=== PATIENT | male | born 1970 | race Caucasian/White ===

== ENCOUNTER 2022-07-26 10:38 | Day surgery (SDC) | payer OTHER, SELFPAY ==
[2022-07-23 12:07] VITALS: BMI 23.8
--- NOTE | 2022-07-25 12:58 | P.CONAN_ITS ---
Documented by User: Silvia Lagos NP 07/25/22 12:58 HPI - Anesthesia Eval Consult details Narrative: 52yo M for Colonoscopy PMFSH Active Problems Active Problems: All Active Problems (Updated 07/23/22 @ 11:55 by Alisha Harrison RN) Constipation (Acute) Encounter to establish care (Acute) Screening for diabetes mellitus (Acute) Screening for hyperlipidemia (Acute) Screening for hypothyroidism (Acute) Screening for prostate cancer (Acute) Neuropathy (Acute) COVID-19 (Acute) GERD (gastroesophageal reflux disease) (Acute) Upper back pain (Acute) Wart (Acute) Past Medical History Medical History History of COVID-19 Neuropathy Family History Family History Mother Dementia Father Cancer Other Mental health disorder Substance use disorder Surgical History Surgical History History of endoscopy History of root canal procedure Social History Social History Housing: Apartment Are you a primary child care coordinator to a significant other at home: No Do you presently have visiting nurse or other home services: No Alcohol intake: current Alcohol intake frequency: holidays/special occasions only Alcohol type: beer Patient Tobacco Use Status: Never used Tobacco e-Cigarette/Vaping Use: Never Used Second Hand Smoke Exposure: No Use of substances other than those prescribed or required for medical reasons: No Have you been hit, kicked, punched, or otherwise hurt by someone within the past year? 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 Cognitive needs: No Hearing needs: No Vision needs: Yes (glasses) Meds Allergies Allergy/AdvReac Type Severity Reaction Status Date / Time No Known Allergies Allergy Verified 05/31/22 11:54 Exam Exam Date and Time: July 25, 2022 1258 Height,Weight and Vital Signs: Height 5 ft 6 in Weight 67.132 kg Assessment and Plan Assessment Anesthesia Assessment: Chart Reviewed Documented by User: Sandi Zuniga MD 07/26/22 11:30 [facility] Active Problems Active Problems: All Active Problems (Updated 07/26/22 @ 11:22 by Sandi Zuniga MD) Constipation (Acute) Neuropathy (Acute) COVID-19 (Acute) GERD (gastroesophageal reflux disease) (Acute) Upper back pain (Acute) Wart (Acute) Past Medical History Medical History History of COVID-19 Neuropathy Family History Family History Mother Dementia Father Cancer Other Mental health disorder Substance use disorder Family history of problems with anesthesia: No Surgical History Surgical History History of endoscopy History of root canal procedure History of Problems with Anesthesia: No Social History Social History Housing: Apartment Are you a primary child care coordinator to a significant other at home: No Do you presently have visiting nurse or other home services: No Alcohol intake: current Alcohol intake frequency: holidays/special occasions only Alcohol type: beer Patient Tobacco Use Status: Never used Tobacco e-Cigarette/Vaping Use: Never Used Second Hand Smoke Exposure: No Use of substances other than those prescribed or required for medical reasons: No Have you been hit, kicked, punched, or otherwise hurt by someone within the past year? 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 Denies broken, loose, missing teeth) Heart: RRR Lungs: CTAB Assessment and Plan Assessment Anesthesia Assessment: Anesthesia Plan Discussed Final Anesthetic Review Family History of Problems with Anesthesia: No History of Problems with Anesthesia: No NPO: Yes ASA Class: II Final Preanesthetic Review: No Changes in Pt Med Stat, Meds/Allgs Chart Reviewed, Consent Obtained/Reviewed and Anes Risks/Benef Reviewed Patient Risk: Low Procedure Risk: Low Assessment/Block/Sedation in SS: Assess/Block/Sedation-SS Anesthetic Plan Anesthetic Plan: MAC: Disposition: Standard PACU
[2022-07-26] MEDS: Lactated Ringers 1,000 ML 100 ML IVCONT (10:56)
[2022-07-26 11:19] VITALS: BP 147/97; PULSE 103; RESP 18; TEMP 36.6; O2SAT 97
--- NOTE | 2022-07-26 11:41 | MHC.SHP ---
Pre-Procedural Eval Section A Date of Service: 07/26/22 The patient is an INPATIENT: No The History & Physical has been completed within 30 days and I have reviewed it.: No Section B Chief Complaint: screening Relevant Social History: None Present Medications: see Short Stay Collaborative assessment Medical History: Significant History (GERD, constipation, neuropathy) History of Previous Operations: Relevant previous surgery/procedure and date(s) (History of endoscopy History of root canal procedure) Allergies: Allergies Allergy/AdvReac Type Severity Reaction Status Date / Time No Known Allergies Allergy Verified 05/31/22 11:54 Review of Systems Sugical H&P ROS: Negative: Constitution, Cardiovascular and Respiratory and Yes, Specify: Gastrointestinal (constipation and diarrhea) Exam Surgical H&P Exam: Normal: Heart, Normal: Lungs and Normal: Extremities Plan I have reviewed the history and physical and performed a pertinent physical examination on my patient. No changes have occurred unless specified. Time Spent With Patient Time: Total time managing care of this patient today ____ minutes.
--- NOTE | 2022-07-26 11:44 | PC.NURSE ---
report given to wu luz rn at this time.
--- NOTE | 2022-07-26 12:35 | PM.OP ---
Brief Operative Note Date of Service: 07/26/22 Pre-op diagnosis: Colon cancer screening (open access colonoscopy), intermittent constipation and diarrhea Post-op diagnosis: other (COLON POLYPS, DIVERTICULOSIS, HEMORRHOIDS) Procedure: COLONOSCOPY TO CECUM WITH BIOPSIES AND SNARE POLYPECTOMY Surgeon: Gwendolyn Arambula MD Anesthesia: MAC Was an Parts Counter Sales Person used for this Procedure?: Yes Parts Counter Sales Person: Elmer Valadez Estimated blood loss (mL): 0 Pathology: other (A- ASCENDING COLON POLYP B- RIGHT COLON BXS R/O MICROSCOPIC COLITIS C- LEFT COLO BXS R/O MICROSCOPIC COLITIS D- SIGMOID POLYP) Condition: stable Disposition: PACU
--- NOTE | 2022-07-26 12:36 | W.PM.OPN ---
Operative Note Operative Note Date of Service: 07/26/22 Narrative: Pre-op diagnosis: Colon cancer screening (open access colonoscopy), intermittent constipation and diarrhea alternating with normal stools Post-op diagnosis:?other (COLON POLYPS, DIVERTICULOSIS, HEMORRHOIDS) Surgeon: Gwendolyn Arambula MD Anesthesia:?MAC COLONOSCOPY TILL CECUM WITH BIOPSIES AND SNARE POLYPECTOMY Consent: Indications for the procedure and potential complications of bleeding, perforation, reaction to medications and missed diagnosis were discussed with the patient and informed consent was obtained. Instrument: Olympus PCF H 190 L variable stiffness pediatric colonoscope Monitoring: Vital signs and clinical assessment, intermittent blood pressure monitoring, continuous EKG monitoring, Pulse oximetry and Carbon Dioxide monitoring were done throughout the procedure. Colon withdrawl time was 21 minutes. Procedure: The patient was placed in the left lateral decubitis position and pre-procedure medications were administered. After a digital rectal examination of the ano-rectum, the video colonoscope was inserted into the rectum and advanced through the colon to the cecum. The colonoscope was slowly withdrawn in a retrograde panoramic fashion and the colon mucosa was carefully examined including a retroflexed view of the rectum. Findings and interventions are described below. Procedure Difficulty: Without difficulty Findings: Terminal Ileum: Distal 5 cm was examined and appeared normal Cecum: Normal Ascending Colon: A 7-8 mm sessile polyp in mid AC removed with a cold snare Transverse Colon: Normal Descending Colon: Moderate diverticulosis Sigmoid Colon: A 10 mm sessile polyp removed with a cold snare. Moderate diverticulosis Rectum: Normal Ano-rectum: Moderate internal hemorrhoids Colon preparation: Good after some irrigation Impression and Post Procedure Diagnosis: Colonoscopy Findings: Two small to medium sized polyps removed Random biopsies were obtained from right and left colon to check for microscopic colitis. Moderate diverticulosis seen in the left colon Moderate hemorrhoids on retroflexed exam. Plan: A letter will be sent with pathology results Repeat Colonoscopy interval based on path results - in 3-5 years if polyps are adenomatous and 10 years if polyps are hyperplastic. Above findings were reviewed with the patient and colon polyps and diverticulosis handouts were given in the discharge area Pt was advised to start taking a fibre supplement to help regulate his BMs. And to schedule an appt in the GI clinic if his symptoms persist.
[2022-07-26 13:16] VITALS: BP 109/70; PULSE 80; RESP 16; TEMP 36.1; O2SAT 97
[2022-07-26 13:30] VITALS: BP 108/70; PULSE 72; RESP 16; O2SAT 98
[2022-07-26 13:45] VITALS: BP 122/85; PULSE 66; RESP 16; TEMP 36.2; O2SAT 100
== END 2022-07-26 14:25 | disposition home or self-care (01) ==
PROVIDERS: Visit Provider Internal Medicine Gastroenterology
PROC: 0DJD8ZZ Inspection of Lower Intestinal Tract, Via Natural or Artificial Opening Endoscopic (ICD-10-PCS; CPT 45378; principal; 2022-07-26 11:50)
DX: Z12.11 Encounter for screening for malignant neoplasm of colon (principal); D12.2 Benign neoplasm of ascending colon; D12.5 Benign neoplasm of sigmoid colon; K57.30 Diverticulosis of large intestine without perforation or abscess without bleeding; K64.8 Other hemorrhoids; K59.09 Other constipation; R19.7 Diarrhea, unspecified; K21.9 Gastro-esophageal reflux disease without esophagitis; G62.9 Polyneuropathy, unspecified; Z79.899 Other long term (current) drug therapy; Z86.16 Personal history of COVID-19
CPT/HCPCS: 45385; 45380; 88305

== ENCOUNTER 2023-04-14 11:04 | Outpatient (AMB) | payer BC, SELFPAY ==
--- NOTE | 2023-04-14 11:23 | AM.OFFWIN_ITS ---
Intake Vital Signs 04/14/23 11:24 Height 5 ft 6 in Weight 68.039 kg BMI 24.2 BP 122/80 Blood Pressure Location Lt brachial Position Sitting Pulse 76 Pulse Source Pulse Oximeter Temp 97.8 F Temp Source Temporal Artery Scan Pulse Oximetry (%) 97 Intake Visit Reasons: EP LT toe injury from November/ Intake Note: pt is here for c.o left left injury from november and Patient Tobacco Use Status: Never used Tobacco Allergies No Known Allergies Allergy (Verified 04/14/23 11:24) Do you need a note to return to daycare/school/sports/work: Yes HPI HPI Comments History of Present Illness Details 1141 This is a 53-year-old male presenting to the clinic for evaluation of atraumatic left 2nd toe pain since November, patient states he remembers this pain started while at work however no associated trauma. Intermittent in nature, severe from time to time. Minimal pain at this time. Patient tells me he knows it is fractured and or broken. No numbness, tingling, fevers, chills. No history of gout. Physical examination benign. Normal appearing finger. 2+ dorsalis pedis, anterior tibialis and posterior tibialis pulses equal bilateral. Normal sensation distally. Capillary refill less than 2nd to bilateral lower extremity toes. Full painless range of motion to all toes. No deformities. This is likely inflammatory arthritis versus gout. Unlikely fracture, dislocation no signs of neurovascular compromise or threat to limb Will send a short course of prednisone and naproxen. Advised him to follow-up with the orthopedic team at this continues. I did offer him an x-ray however he states he his pain out of pocket so he would prefer to not have 1 if he does not need it. Low suspicion for fracture explain. As this is atraumatic. Educated patient on diagnosis and treatment plan, answered all question, patient verbalizes understanding. At this time patient will be discharged home, advised to return with new or worsening symptoms. Educated on worrisome signs and symptoms and when to return. At this time I feel comfortable discharge home. [facility] Medical History Neuropathy History of COVID-19 Surgical History History of endoscopy History of root canal procedure Family History Mother Dementia Father Cancer Other Mental health disorder Substance use disorder Social History Housing: Apartment Are you a primary personal care service provider to a significant other at home: No Do you presently have visiting nurse or other home services: No Alcohol intake: current Alcohol intake frequency: holidays/special occasions only Alcohol type: beer Patient Tobacco Use Status: Never used Tobacco e-Cigarette/Vaping Use: Never Used Second Hand Smoke Exposure: No service: No 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 occupational 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: employed 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 Cognitive needs: No Hearing needs: No Vision needs: Yes (glasses) Review of Systems Const Details: Constitutional : No Weight loss, No Fever, No Chills, No Fatigue, No Malaise ENT/Mouth : No sore throat, No Rhinorrhea Eyes: No Eye Pain, No Swelling, No Redness Cardiovascular : No Chest Pain, No SOB, No Dyspnea on Exertion, No Orthopnea, No Edema, No Palpitations Respiratory : No Cough, No Sputum, No Wheezing Gastrointestinal : No Nausea, No Vomiting, No Diarrhea, No Constipation, No abdominal Pain, No Hematochezia, No Melena Genitourinary : No Dysuria, No Urinary Frequency, No Hematuria, Musculoskeletal : + joint pain, No Myalgias, No Joint Swelling Skin : No Skin Lesions, No rash Neuro : No Weakness, No Numbness, No Dizziness, No Headache Psych : No Anxiety/Panic, No Depression All other systems reviewed and are negative All systems reviewed & are unremarkable except as noted in HPI and below Physical Exam Vital Signs: Last Vital Signs Temp 97.8 F 04/14/23 11:24 Pulse 76 04/14/23 11:24 BP 122/80 04/14/23 11:24 Pulse Ox 97 04/14/23 11:24 BMI result Body Mass Index 24.2 vss Appearance: Alert.? Oriented X3.? No acute distress.? Head: Normocephalic, atraumatic, no step-offs or deformities Eyes: Pupils equal, round and reactive to light.? ENT: Pharynx normal.? Neck: Normal inspection.? Neck supple.? CVS: Normal heart rate and rhythm.? Pulses normal.? Respiratory: No respiratory distress.? Breath sounds normal.? Abdomen: Soft and nontender.? Skin: Skin warm and dry.? Normal skin color.? Normal skin turgor.? Extremities: No lower extremity edema.? No calf ttp. 5/5 strength to bilateral upper and lower extremities +Normal appearing finger. 2+ dorsalis pedis, anterior tibialis and posterior tibialis pulses equal bilateral. Normal sensation distally. Capillary refill less than 2nd to bilateral lower extremity toes. Full painless range of motion to all toes. No deformities Neuro: Oriented X 3.? No motor deficit.? No sensory deficit. CN 2-12 intact Assessment & Plan Assessment & Plan (1) Toe pain, left: Code(s): M79.675 - Pain in left toe(s) Plan Take your medications as prescribed. If you were prescribed antibiotics today, it is important that you take your medication to their entirety, do not skip any doses, do not finish them early. Follow-up with your primary care provider this week. Return to the emergency department with new or worsening symptoms. Such as fevers, chills, chest pain, shortness of breath, nausea, vomiting, dizziness, headache, vision changes, lethargy In case of emergency call 911 Orders: Orders XR toe LT min 2V Today M79.675 - Pain in left toe(s) Medications: New naproxen 500 mg PO BID PRN 14 tabs 0RF pain prednisone 40 mg (2 x 20 mg) PO DAILY 5 days 10 tabs 0RF Coding Level of Care Code Est Pt Level 3 (88773) Diagnoses Toe pain, left M79.675
[2023-04-14 11:24] VITALS: BP 122/80; PULSE 76; TEMP 36.6; O2SAT 97; BMI 24.2
== END 2023-04-14 12:11 | disposition home or self-care (01) ==
PROVIDERS: Visit Provider Physician Assistant
DX: M79.675 Pain in left toe(s) (principal)
CPT/HCPCS: 99213

== ENCOUNTER 2023-06-19 13:51 | Outpatient (AMB) | payer BC, SELFPAY ==
--- NOTE | 2023-06-19 13:55 | A.OFFPC_ITS ---
Vital Signs 06/19/23 13:56 Height 5 ft 6 in Weight 155 lb 2 oz BMI 25.0 BP 136/70 Blood Pressure Location Lt brachial Position Sitting Pulse 77 Pulse Source Pulse Oximeter Pulse Oximetry (%) 98 Oxygen Delivery Method Room Air Intake Visit Reasons: Prostate issues, rescheduled from 05/15 Steamship Agent Required: No Accompanied by: Self / Same As Patient Allergies No Known Allergies Allergy (Verified 06/19/23 13:56) Tobacco use date assessed: 06/19/23 Dental Screening Dental Screen Date: 06/19/23 Did you have a dental visit in the last 12 months?: Yes Was dental information given to patient?: Patient has dentist HPI HPI Comments History of Present Illness Details 53-year-old male past medical history si gnificant for constipation, neuropathy, GERD. Patient of Brigette Coronado, patient presents today for prostate issues. Patient reports 2 years ago noted a slower urinary stream, as 6 weeks ago he noted that when he was urinating felt like he was not emptying his bladder completely and states that he would have to wait 30-40 seconds and would urinate a little bit more. Patient denies any pain at this time however reports he did have of pelvic discomfort a few weeks ago which has completely resolved. Patient denies urinary frequency, fever, chills and flank pain. Reports occasional dysuria however this is infrequent. Patient reports this week noted left elbow pain that extends up into his bicep area and extends down his arm and he has mild numbness in left ring and pinky finger. Patient denies any acute injury. States he is taking [id number] Tylenol with some relief of pain. Denies any upper extremity weakness or dropping things [facility] Medical History Neuropathy History of COVID-19 Surgical History History of endoscopy History of root canal procedure Family History Mother Dementia Father Cancer Other Mental health disorder Substance use disorder Social History Housing: Apartment Are you a primary clinical care coordinator to a significant other at home: No Do you presently have visiting nurse or other home services: No Alcohol intake: current Alcohol intake frequency: holidays/special occasions only Alcohol type: beer Patient Tobacco Use Status: Never used Tobacco e-Cigarette/Vaping Use: Never Used Second Hand Smoke Exposure: No service: No Current occupational status: employed 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 1. Little interest or pleasure in doing things: not at all 2. Feeling down, depressed, or hopeless: not at all 3. Trouble falling or staying asleep, or sleeping too much: not at all 4. Feeling tired or having little energy: not at all 5. Poor appetite or overeating: not at all 6. Feeling bad about yourself - or that you are a failure or have let yourself or your family down: not at all 7. Trouble concentrating on things, such as reading the newspaper or watching television: not at all 8. Moving or speaking so slowly that other people could have noticed. Or the opposite - being so fidgety or restless that you have been moving around a lot more than usual: not at all 9. Thoughts that you would be better off or of hurting yourself in some way: not at all Total score: 0 80363 - PHQ-9 Billing: Yes Source: Developed by Drs. Luis M Balderrama, No Thao, Mynor Ortiz and colleagues, with an educational jeremy from [employer]. Thrive Questionnaire Date Thrive assessed: 06/19/23 I am a: Patient What is your living situation today?: I have a steady place to live Within the past 12 months, did the food you bought not last and you didn't have the money to get more?: Never true Within the past 12 months, did you worry whether your food would run out before you got money to buy more?: Never true Do you have trouble paying for medicines?: No Do you have trouble getting transportation to medical appointments?: No Do you have trouble paying your heating and electricity bill?: No Do you have trouble taking care of your child, family member or friend?: No Do you have trouble with day-to-day activities such as bathing, preparing meals, shopping, managing finances, etc.?: No Are you currently unemployed and looking for a job?: No Are you interested in more education?: No Please select the resources that you would like help with: None Currently or been in a relationship where the following occur: no concerns reported AUDIT C Alcohol Use Questionnaire (AUDIT-C) 1. How often do you have a drink containing alcohol?: 2-3 times a week 2. How many drinks containing alcohol do you have on a typical day when you are drinking?: 1 or 2 3. How often do you have six or more drinks on one occasion?: Never Total Score: 3 PERRY-7 AMB Questionnaire PERRY-7 Date PERRY - 7 assessed: 06/19/23 Feeling nervous, anxious, or on edge: 0 = Not at all Not being able to stop or control worryin = Not at all Worrying too much about different things: 0 = Not at all Trouble relaxin = Not at all Being so restless that it is hard to sit still: 0 = Not at all Becoming easily annoyed or irritable: 0 = Not at all Feeling afraid as if something awful might happen: 0 = Not at all Total PERRY-7 score (0-4 normal; 5-9 mild; 10-14 moderate; 15-21 severe): 0 Source: Developed by Drs. Luis M Balderrama, No Thao, Mynor Ortiz and colleagues, with an educational jeremy from [employer]. PERRY-7 Assessment Billing PERRY-7 Assessment Tool: PERRY-7 Assessment 97078 Review of Systems Const Denies chills, Denies fatigue, Denies fever(s) and Denies poor appetite Eyes Denies no additional complaints ENT Reports Normal hearing present Card Denies chest pain, Denies syncope, Denies rapid heart rate and Denies dyspnea Resp Denies cough and Denies dyspnea GI Denies change in stool character, Denies constipation, Denies diarrhea, Denies nausea and Denies vomiting Details: slow urinary stream Denies dysuria, Denies urinary frequency and Denies urinary urgency Musc Reports arthralgias (left elbow pain ) Neuro Reports Normal hearing present, Denies confusion and Denies syncope Psych Denies confusion Endo Denies fatigue Physical exam (Primary Care) Vital Signs: Last Vital Signs Pulse 77 06/19/23 13:56 BP 136/70 06/19/23 13:56 Pulse Ox 98 06/19/23 13:56 Oxygen Delivery Method Room Air 06/19/23 13:56 BMI result Body Mass Index 25.0 Tobacco/Smoking Status: Tobacco use Status Tobacco use date assessed 06/19/23 06/19/23 14:02 Patient Tobacco Use Status Never used Tobacco 06/19/23 14:02 e-Cigarette/Vaping Use Never Used 06/19/23 14:02 PHQ-9: PHQ-9 Score PHQ-9: Total score 0 06/19/23 14:02 Thrive Assessment: Date of Thrive Assessment Date Thrive assessed 06/19/23 06/19/23 14:02 Currently or been in a relationship where the following occur: no concerns reported Const General: No confusion Orientation/consciousness: No confusion HENMT Head: Yes normocephalic and Yes atraumatic Eyes Conjunctivae: conjunctivae normal Chest Chest palpation & inspection: normal inspection of the chest Resp Effort & Inspection: normal respiratory effort Auscultation: clear to auscultation bilaterally, no crackles, no rhonchi and no wheezes Cardio Rate: regular rate Rhythm: regular rhythm Heart sounds: S1 normal heart sound present and S2 normal heart sound present GI Inspection: Yes normal to inspection General: Yes no CVA tenderness Back/Spine/Pelvis Back: no CVA tenderness Neuro General: No confusion Cranial nerves: Yes Normal hearing present Extrem General: No edema Right upper extremity: normal to inspection and full ROM Left upper extremity: normal to inspection, full ROM, normal capillary refill and elbow/forearm Details: abnormal ROM Details: pain with active ROM; no tenderness and no swelling Assessment and Plan Assessment & Plan (1) Dysuria: Code(s): R30.0 - Dysuria Plan: Urinalysis with reflex culture ordered to further evaluate. Given patient reports slower urinary stream is concerned about prostate problems will order PSA to further evaluate. (2) Epicondylitis, lateral, left: Code(s): M77.12 - Lateral epicondylitis, left elbow Plan: Naproxen 500 b.i.d. as needed sent for likely epicondylitis did discuss with patient referral to physical therapy for left elbow pain and likely nerve compression. Patient declines at this time would like to proceed with anti- inflammatory medication 1st to see if this resolves his left elbow pain. If no improvement patient advised to follow-up for further evaluation and treatment with physical therapy and possible EMG and nerve conduction studies if numbness persists. Patient agreeable to plan of care. Plan Patient declined scheduling follow-up patient states he will call if needed Orders: Orders Comprehensive [place]. Panel Fast 06/19/23 R30.0 - Dysuria Prostate Specific Antigen Scr 06/19/23 Z12.5 - Encounter for screening for malignant neoplasm of prostate UA CC w/rflx Micro + Cult 06/19/23 R30.0 - Dysuria Medications: New naproxen 500 mg PO BID PRN 30 tabs 3RF pain M77.12 - Lateral epicondylitis, left elbow Coding Level of Care Code Est Pt Level 3 (55024) Diagnoses Dysuria R30.0 Epicondylitis, lateral, left M77.12 Additional Codes PERRY-7 Assessment Billing - PERRY-7 Assessment Tool: PERRY-7 Assessment 27483 ([id number])
[2023-06-19 13:56] VITALS: BP 136/70; PULSE 77; O2SAT 98; BMI 25.0
== END 2023-06-19 14:24 | disposition home or self-care (01) ==
PROVIDERS: PCP Nurse Practitioner Family; Visit Provider Nurse Practitioner Family
DX: R30.0 Dysuria (principal); M77.12 Lateral epicondylitis, left elbow
CPT/HCPCS: 99213

== ENCOUNTER 2023-06-19 14:29 | Outpatient (REF) | payer BC, SELFPAY ==
[2023-06-19 15:06] LABS: Appearance Urine Clear; Color Urine Yellow; Glucose Urine UA Negative (Negative); Leukocyte Esterase Urine Negative (Negative); Nitrite Urine Negative (Negative); PH 6.5 (5.0-9.0); Specific Gravity - Urine 1.015 (1.005-1.025); Urine Blood Negative (Negative); Urine Ketones Negative (Negative); Urine Protein Negative (Neg-Trace)
[2023-06-19 15:57] LABS: Prostate Specific Antigen Scr 0.23 ng/mL (<0.05-4.0)
== END 2023-06-19 14:30 | disposition home or self-care (01) ==
LOC: HO.LAB 14:29
PROVIDERS: Visit Provider Nurse Practitioner Family
DX: Z12.5 Encounter for screening for malignant neoplasm of prostate (principal); R30.0 Dysuria
CPT/HCPCS: 36415; 81003; 84153

== ENCOUNTER 2023-06-24 08:03 | Outpatient (REF) | payer BC, SELFPAY ==
[2023-06-24 09:26] LABS: Alanine Aminotransferase 50 U/L (0-40); Alkaline Phosphatase 49 U/L (39-117); Anion Gap 10 (12-20); Aspartate Amino Transferase 33 U/L (5-37); Bilirubin Total 0.5 mg/dL (0.0-1.0); Blood Urea Nitrogen 20 mg/dL (9-16); Calcium 9.1 mg/dL (8.4-10.2); Carbon Dioxide 27 mmol/L (22-29); Chloride 109 mmol/L (96-108); Estimated Glomerular Filt Rate > 60; Glucose Fasting 95 mg/dL (60-99); Potassium 4.4 mmol/L (3.3-5.1); Sodium 142 mmol/L (135-145); Total Protein 6.6 g/dL (6.5-8.0)
== END 2023-06-24 08:04 | disposition home or self-care (01) ==
LOC: HO.LAB 08:03
PROVIDERS: PCP Nurse Practitioner Family; Visit Provider Nurse Practitioner Family
DX: R30.0 Dysuria (principal)
CPT/HCPCS: 36415; 80053

== ENCOUNTER 2024-02-17 11:26 | Outpatient (AMB) | payer BC, SELFPAY ==
--- NOTE | 2024-02-17 11:59 | MHC.OFFWIV ---
Intake Vital Signs 02/17/24 12:00 Height 5 ft 6 in Weight 156 lb BMI 25.2 BP 134/86 Blood Pressure Location Lt brachial Position Sitting Pulse 81 Pulse Source Pulse Oximeter Temp 97.9 F Temp Source Temporal Artery Scan Pulse Oximetry (%) 98 Oxygen Delivery Method Room Air Intake Visit Reasons: EP Persistent cough Intake Note: pt c/o persistent cough. Started beginning of January. Patient Tobacco Use Status: Never used Tobacco Allergies No Known Allergies Allergy (Verified 02/17/24 11:59) Do you need a note to return to daycare/school/sports/work: No HPI HPI Comments History of Present Illness Details 53 y/o male patient who presents to the walk in clinic with c/o persitent dry cough for 4 weeks now. Denies fevers, chills, nausea or vomiting. [facility] Medical History Neuropathy History of COVID-19 Surgical History History of endoscopy History of root canal procedure Family History Mother Dementia Father Cancer Other Mental health disorder Substance use disorder Social History Housing: Apartment Are you a primary critical care nurse practitioner to a significant other at home: No Do you presently have visiting nurse or other home services: No Alcohol intake: current Alcohol intake frequency: holidays/special occasions only Alcohol type: beer Patient Tobacco Use Status: Never used Tobacco e-Cigarette/Vaping Use: Never Used Second Hand Smoke Exposure: No service: No Current occupational status: employed 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 Cognitive needs: No Hearing needs: No Vision needs: Yes (glasses) Review of Systems Const All systems reviewed & are unremarkable except as noted in HPI and below Physical Exam Vital Signs: Last Vital Signs Temp 97.9 F 02/17/24 12:00 Pulse 81 02/17/24 12:00 BP 134/86 02/17/24 12:00 Pulse Ox 98 02/17/24 12:00 Oxygen Delivery Method Room Air 02/17/24 12:00 BMI result Body Mass Index 25.2 Const General: comfortable and no acute distress Nutritional Appearance: well nourished Orientation/consciousness: patient oriented x3 HEENT Head: Yes normocephalic Ears: external ears normal and TM's normal bilaterally General nose exam: Normal nasal mucous membranes and turbinates present Face and sinus: Yes sinuses nontender Mouth: moist mucous membranes Throat: Yes posterior oropharynx normal Resp Effort & Inspection: normal respiratory effort, able to speak in complete sentences and Actively coughing Auscultation: clear to auscultation bilaterally, no crackles, no rales, no rhonchi and no wheezes Cardio Heart sounds: S1 normal heart sound present and S2 normal heart sound present Neuro General: patient oriented x3 Assessment & Plan Assessment & Plan (1) Cough in adult: Code(s): R05.9 - Cough, unspecified Plan: Take Claritin BID Ordered Doxy OTC cough remedies. Medications: New doxycycline hyclate 100 mg PO BID 7 days 14 caps 0RF R05.9 - Cough, unspecified loratadine (Claritin) 10 mg PO DAILY 30 tabs 0RF R05.9 - Cough, unspecified benzonatate 100 mg PO TID 30 caps 0RF R05.9 - Cough, unspecified Coding Level of Care Code Est Pt Level 3 (14168) Diagnoses Cough in adult R05.9 Time Spent (min) 15
[2024-02-17 12:00] VITALS: BP 134/86; PULSE 81; TEMP 36.6; O2SAT 98; BMI 25.2
== END 2024-02-17 13:23 | disposition home or self-care (01) ==
PROVIDERS: PCP Nurse Practitioner Family; Visit Provider Nurse Practitioner Family
DX: R05.9 Cough, unspecified (principal)
CPT/HCPCS: 99213

== ENCOUNTER 2024-04-16 15:53 | Outpatient (AMB) | payer BC, SELFPAY ==
--- NOTE | 2024-04-16 15:55 | AM.OFFWIN_ITS ---
Intake Vital Signs 04/16/24 15:56 Height 5 ft 6 in Weight 155 lb BMI 25.0 BP 120/82 Blood Pressure Location Rt brachial Position Sitting Pulse 86 Pulse Source Pulse Oximeter Pulse Oximetry (%) 97 Oxygen Delivery Method Room Air Intake Visit Reasons: EP Pain in lower left side Intake Note: Patient here for lower back pain for at least 1 week, last night the pain has enlarged Patient Tobacco Use Status: Never used Tobacco Allergies No Known Allergies Allergy (Verified 04/16/24 15:57) Do you need a note to return to daycare/school/sports/work: No HPI HPI Comments History of Present Illness Details 54 y/o male patient who presents to the walk in clinic with c/o left sided Flank/back pain for few days. Denies Frequency, urgency or dysuria, but reports weak urinary stream which has been going on for at-least 2 years. [facility] Medical History Neuropathy History of COVID-19 Surgical History History of endoscopy History of root canal procedure Family History Mother Dementia Father Cancer Other Mental health disorder Substance use disorder Social History Housing: Apartment Are you a primary floor care technician to a significant other at home: No Do you presently have visiting nurse or other home services: No Alcohol intake: current Alcohol intake frequency: holidays/special occasions only Alcohol type: beer Patient Tobacco Use Status: Never used Tobacco e-Cigarette/Vaping Use: Never Used Second Hand Smoke Exposure: No service: No 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 occupational 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: employed 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 Cognitive needs: No Hearing needs: No Vision needs: Yes (glasses) Review of Systems Const All systems reviewed & are unremarkable except as noted in HPI and below Physical Exam Vital Signs: Last Vital Signs Pulse 86 04/16/24 15:56 BP 120/82 04/16/24 15:56 Pulse Ox 97 04/16/24 15:56 Oxygen Delivery Method Room Air 04/16/24 15:56 BMI result Body Mass Index 25.0 Const General: cooperative and no acute distress Orientation/consciousness: patient oriented x3 General: Yes no CVA tenderness Back/Spine/Pelvis Back: no CVA tenderness and back tenderness Thoracic/Lumbar Spine: thoraco-lumbar ROM normal, paraspinal muscle tenderness and lumbar spinal tenderness (left sided flank tenderness L3-L5) Pelvis: no pain with anterior-posterior compression Neuro General: patient oriented x3, gait normal and moves all extremities Psych Speech and movement: Normal speech and movement present Assessment & Plan Assessment & Plan (1) Flank pain: Code(s): R10.9 - Unspecified abdominal pain Plan: Ordered Urinalysis to r/o Kidney/bladder infections, Pt unable to provide urine sample today. He will RTC tomorrow. (2) Lumbago without sciatica: Code(s): M54.50 - Low back pain, unspecified Qualifiers: Chronicity: acute Back pain laterality: left Qualified Code(s): M54.50 - Low back pain, unspecified Plan: Acetaminophen for pain relief. IceHot Ordered Flexeril and Lidocaine patches. Orders: Orders UA CC w/rflx Micro + Cult Today M54.50 - Low back pain, unspecified, R10.9 - Unspecified abdominal pain Medications: New cyclobenzaprine 5 mg PO BEDTIME 14 tabs 0RF M54.50 - Low back pain, unspecified lidocaine 5% leave on most painful area for up to 12 hrs 1 patch topical DAILY 30 ea 0RF M54.50 - Low back pain, unspecified Coding Level of Care Code Est Pt Level 3 (10107) Diagnoses Flank pain R10.9 Acute left-sided low back pain without sciatica M54.50 Chronicity: acute Back pain laterality: left Time Spent (min) 15
[2024-04-16 15:56] VITALS: BP 120/82; PULSE 86; O2SAT 97; BMI 25.0
== END 2024-04-16 16:21 | disposition home or self-care (01) ==
PROVIDERS: PCP Nurse Practitioner Family; Visit Provider Nurse Practitioner Family
DX: R10.9 Unspecified abdominal pain (principal); M54.50 Low back pain, unspecified

== ENCOUNTER → 2024-04-16 15:53 | Outpatient (BNVA) | payer BC, SELFPAY | PROVIDERS: PCP Nurse Practitioner Family ==

== ENCOUNTER 2024-06-23 14:24 | Outpatient (AMB) | payer BC, SELFPAY ==
--- NOTE | 2024-06-23 15:06 | AM.OFFWIN_ITS ---
Intake Vital Signs 06/23/24 15:08 Height 5 ft 6 in Weight 159 lb 8 oz BMI 25.7 BP 148/88 H Blood Pressure Location Rt brachial Position Sitting Pulse 92 Pulse Source Pulse Oximeter Temp 97.4 F Temp Source Temporal Artery Scan Pulse Oximetry (%) 100 Oxygen Delivery Method Room Air Intake Visit Reasons: EP ? stiches on LT ring finger Intake Note: Pt presents to the office today for c/o holding onto a metal shelf at work and as he was letting go his finger got caught on the shelf. Pt states this happened at about 12:45 this afternoon. Pt states he does not want this to be workmens comp. Pt states he is not up to date on his tetanus vaccine. Patient Tobacco Use Status: Never used Tobacco Allergies No Known Allergies Allergy (Verified 06/23/24 15:10) HPI HPI Comments History of Present Illness Details History of Present Illness The patient is a 54-year-old male presenting with a finger laceration. The injury occurred at work at approximately 12:30-12:45 PM when the patient accidentally cut his finger on a metal shelf. The patient attempted to wash the wound with hot water but did not have access to soap at the time. A colleague assisted the patient by applying an antiseptic and a Band-Aid to the wound. The patient reported difficulty stopping the bleeding initially, despite applying pressure for approximately 10 minutes, but it eventually ceased with the Band- Aid in place. The patient is not on any anticoagulant medications or aspirin. The last tetanus vaccination was likely between 1998 and 2002, and thus, a booster would be necessary. The patient's nail bed is intact, and there is no restriction in the range of motion of the finger. The appearance of the wound suggests it is superficial. Physical Exam General: Cooperative, healthy appearing, comfortable, no acute distress and well developed Orientation: Patient oriented x3 Limitations: No limitations Head: Normal to inspection Ears: Hearing grossly normal bilaterally Nose: Normal External nose present Face and sinus: normal facial exam Eyes: Appearance normal, both eyes and all related structures Neck: Normal visual inspection and Yes full ROM Respiratory: Normal respiratory effort and able to speak in complete sentences. Skin: No rashes or lesions noted Neuro: Patient oriented x3 Extremities: Normal to inspection, left 4th digit full ROM, NVI, 0.75cm linear superficial lac between DIP and PIP on palmar aspect, nail bed intact PFSH Medical History Neuropathy History of COVID-19 Surgical History History of endoscopy History of root canal procedure Family History Mother Dementia Father Cancer Other Mental health disorder Substance use disorder Social History Housing: Apartment Are you a primary home care companion to a significant other at home: No Do you presently have visiting nurse or other home services: No Alcohol intake: current Alcohol intake frequency: holidays/special occasions only Alcohol type: beer Patient Tobacco Use Status: Never used Tobacco e-Cigarette/Vaping Use: Never Used Second Hand Smoke Exposure: No service: No Current occupational status: employed Current occupation: [employer] Cognitive needs: No Hearing needs: No Vision needs: Yes (glasses) Review of Systems Const All systems reviewed & are unremarkable except as noted in HPI and below Physical Exam Vital Signs: Last Vital Signs Temp 97.4 F 06/23/24 15:08 Pulse 92 06/23/24 15:08 BP 148/88 H 06/23/24 15:08 Pulse Ox 100 06/23/24 15:08 Oxygen Delivery Method Room Air 06/23/24 15:08 BMI result Body Mass Index 25.7 Office Procedures Laceration Repair Procedure Location: left 4th digit Text: After discussion of risk and benefits, verbal informed consent was obtained. The area was cleaned, prepped, and draped using sterile technique. The wound was debrided and irrigated of any foreign material or devitalized tissue, soaked in Iodine. Steri-Strips if not stay in place because of the bleeding. Bleeding controlled using Surgicel, slight pressure bandage with a Band-Aid. Standard wound dressing was applied. Wound care instructions were given. The patient tolerated the procedure well. The patient was instructed to return for increased redness or red streaking, pain, swelling, pus, fevers, chills, or any other signs or symptoms of infection or worsening. DAC Immunizations Boostrix Tdap 2.5 Lf unit-8 mcg-5 Lf/0.5 mL intramuscular syringe Performing Provider: Silvana Kang PA-C Performing Location[place] [facility] Administered by: Lorelei Muñoz CMA on 06/23/24 15:40 Dose Route Admin Location Dispensed Lot Number Expiration Date [employer] Financial Legal Assistant 0.5 mL IM Left Tricep 0.5 mL [id number] 04/10/25 [id number] [employer] VIS Given Date VIS Provided VIS Publication Date 06/23/24 Single Vaccine 21 Eligibility Eligibility Date Funding Source Not [facility] Eligible 06/23/24 Private Assessment & Plan Assessment & Plan (1) Finger laceration: Code(s): S61.219A - Laceration without foreign body of unspecified finger without damage to nail, initial encounter Qualifiers: Damage to nail status: without damage Encounter type: initial encounter Finger: ring finger Foreign body presence: without foreign body Laterality: left Qualified Code(s): S61.215A - Laceration without foreign body of left ring finger without damage to nail, initial encounter Plan: Laceration of Finger: The wound was debrided and irrigated of any foreign material or devitalized tissue, soaked in Iodine. Steri-Strips would not stay in place because of the bleeding. Bleeding controlled using Surgicel, slight pressure bandage with a Band-Aid. Standard wound dressing was applied. Patient was instructed to not remove this dressing until tomorrow morning at which time the bleeding should have ceased. He was given extra materials to reapply if the bleeding continued. If he is unable to utilize them as directed, he should return to the clinic or go to the emergency department. Wound care instructions were given. The patient received a tetanus booster today due to the uncertain timing of the last vaccination. Care instructions include keeping the wound dry and monitoring for signs of infection, such as increased redness, swelling, or discharge. The patient should return if these symptoms occur or if there are any complications. Patient was informed and verbally consented to the use of an ambient scribe for clinic note documentation during this visit. Orders: Orders TDaP Immunization Today S61.219A - Laceration without foreign body of unspecified finger without damage to nail, initial encounter Coding Level of Care Code Est Pt Level 4 (77271) Diagnoses Laceration of left ring finger without foreign body without damage to nail, initial encounter S61.215A Damage to nail status: without damage Encounter type: initial encounter Finger: ring finger Foreign body presence: without foreign body Laterality: left
[2024-06-23 15:08] VITALS: BP 148/88; PULSE 92; TEMP 36.3; O2SAT 100; BMI 25.7
== END 2024-06-23 16:01 | disposition home or self-care (01) ==
PROVIDERS: PCP Nurse Practitioner Family; Visit Provider Physician Assistant
DX: S61.219A Laceration without foreign body of unspecified finger without damage to nail, initial encounter (principal); S61.215A Laceration without foreign body of left ring finger without damage to nail, initial encounter

== ENCOUNTER → 2024-06-23 14:24 | Outpatient (BNVA) | payer BC, SELFPAY | PROVIDERS: PCP Nurse Practitioner Family; Visit Provider Physician Assistant | DX: S61.215A Laceration without foreign body of left ring finger without damage to nail, initial encounter (principal); W26.8XXA Contact with other sharp object(s), not elsewhere classified, initial encounter; Y93.9 Activity, unspecified; Y92.9 Unspecified place or not applicable; Y99.9 Unspecified external cause status | CPT/HCPCS: 90471; 90715; 97597 ==

== ENCOUNTER 2024-06-24 11:39 | Outpatient (AMB) | payer BC, SELFPAY ==
[2024-06-24 12:43] VITALS: BP 124/80; PULSE 81; O2SAT 100
--- NOTE | 2024-06-24 12:43 | MHC.OFFWIV ---
Intake Vital Signs 06/24/24 12:43 Weight 159 lb BP 124/80 Blood Pressure Location Rt brachial Position Sitting Pulse 81 Pulse Source Pulse Oximeter Pulse Oximetry (%) 100 Oxygen Delivery Method Room Air Intake Visit Reasons: EP Re-wrap laceration on finger Intake Note: Patient here to have finger re-wrapped. Patient Tobacco Use Status: Never used Tobacco Allergies No Known Allergies Allergy (Verified 06/23/24 15:10) HPI HPI Comments History of Present Illness Details History of Present Illness The patient is a 54-year-old male presenting with concerns related to a digital injury sustained on the previous day. He experienced difficulty managing the wound himself, particularly due to concerns regarding potential bleeding from a possibly nicked artery, as discussed in prior consultations. The patient reported trouble sleeping due to discomfort and positioning difficulties, as he was cautious to avoid laying on the injured finger. Initial management involved the application of Surgicel to control bleeding, which formed a gelatinous matrix as anticipated. He refrained from self-removal of dressings due to concerns of exacerbating bleeding. The patient brought the initial dressing materials for possible reuse. Current symptoms include soreness at the site of injury with a history of periodic nocturnal awakenings due to discomfort. No systemic symptoms such as fever, streaking, or signs of infection were reported. The patient has no past medical interventions for this injury beyond wound care and application of antiseptic solutions provided from work. Physical Exam General: Cooperative, healthy appearing, comfortable, no acute distress and well developed Orientation: Patient oriented x3 Limitations: No limitations Head: Normal to inspection Ears: Hearing grossly normal bilaterally Nose: Normal external nose present Face and sinus: Normal facial exam Eyes: Appearance normal, both eyes and all related structures Neck: Normal visual inspection and Yes full ROM Respiratory: Normal respiratory effort and able to speak in complete sentences. Skin: No rashes or lesions noted Neuro: Patient oriented x3 Extremities: well healing, non bleeding 1cm superficial laceration on 4th left digit, no warmth, no edema, no erythema or streaking noted, full ROM, [facility] Medical History Neuropathy History of COVID-19 Surgical History History of endoscopy History of root canal procedure Family History Mother Dementia Father Cancer Other Mental health disorder Substance use disorder Social History Housing: Apartment Are you a primary child care director to a significant other at home: No Do you presently have visiting nurse or other home services: No Alcohol intake: current Alcohol intake frequency: holidays/special occasions only Alcohol type: beer Patient Tobacco Use Status: Never used Tobacco e-Cigarette/Vaping Use: Never Used Second Hand Smoke Exposure: No service: No Current occupational status: employed Current occupation: [employer] Cognitive needs: No Hearing needs: No Vision needs: Yes (glasses) Review of Systems Const All systems reviewed & are unremarkable except as noted in HPI and below Physical Exam Vital Signs: Last Vital Signs Pulse 81 06/24/24 12:43 BP 124/80 06/24/24 12:43 Pulse Ox 100 06/24/24 12:43 Oxygen Delivery Method Room Air 06/24/24 12:43 Assessment & Plan Assessment & Plan (1) Finger laceration: Code(s): S61.219A - Laceration without foreign body of unspecified finger without damage to nail, initial encounter Qualifiers: Encounter type: initial encounter Finger: ring finger Damage to nail status: without damage Foreign body presence: without foreign body Laterality: left Qualified Code(s): S61.215A - Laceration without foreign body of left ring finger without damage to nail, initial encounter Plan: Plan - Soaked the Surgicel in NS as an initial step for easy removal and to avoid reopening the wound. Removed with no issues, no further bleeding, applied Bacitracin and bandaid and gave wound care advice. - Advise wound care with emphasis on monitoring for signs of infection such as increased warmth, drainage, redness, or streaking. - Recommend the application of topical emollients such as Vaseline for ongoing wound management if necessary, eschewing specific antibacterial treatments unless infection signs appear. - Infuse patient education on the anatomical relevance and location of digital arteries to allay fears regarding arterial involvement. - Ensure the patient understands to seek further medical evaluation if symptoms suggestive of infection or worsening of the condition occur. Patient was informed and verbally consented to the use of an ambient scribe for clinic note documentation during this visit. Coding Level of Care Code New Pt Level 3 (46365) Diagnoses Laceration of left ring finger without foreign body without damage to nail, initial encounter S61.215A Encounter type: initial encounter Finger: ring finger Damage to nail status: without damage Foreign body presence: without foreign body Laterality: left
== END 2024-06-24 13:38 | disposition home or self-care (01) ==
PROVIDERS: PCP Nurse Practitioner Family; Visit Provider Physician Assistant
DX: S61.215A Laceration without foreign body of left ring finger without damage to nail, initial encounter (principal)

== ENCOUNTER → 2024-06-24 11:39 | Outpatient (BNVA) | payer BC, SELFPAY | PROVIDERS: PCP Nurse Practitioner Family; Visit Provider Physician Assistant ==

== ENCOUNTER 2024-10-06 10:34 | Outpatient (AMB) | payer BC, SELFPAY ==
--- NOTE | 2024-10-06 10:35 | AM.OFFWIN_ITS ---
Intake Vital Signs 10/06/24 10:37 Weight 146 lb BP 130/78 Blood Pressure Location Lt brachial Position Sitting Pulse 86 Pulse Source Pulse Oximeter Temp 98.7 F Temp Source Oral Pulse Oximetry (%) 98 Oxygen Delivery Method Room Air Intake Visit Reasons: EP-cough, acid reflux Intake Note: Patient here for persistent cough (3 weeks), fatigue and SOB that started the past couple of days. Patient Tobacco Use Status: Never used Tobacco Allergies No Known Allergies Allergy (Verified 10/06/24 10:38) Do you need a note to return to daycare/school/sports/work: Yes HPI HPI Comments History of Present Illness Details History - The patient is a 54-year-old male pres enting with a persistent cough of approximately three weeks, following flu-like symptoms. The patient initially experienced symptoms of a common cold or influenza but continues to encounter a persistent cough and fatigue. - Claritin was utilized to counteract as sumed seasonal allergy responses but provided limited efficacy in reducing the cough, although it relieved nasal congestion. Initial illness also involved low-grade fevers up to 99.7?F. - Symptoms included shortness of breath, particularly after work, and increased fatigue leading to extended sleeping periods. The patient attempted home management with NyQuil and Claritin but discontinued NyQuil after prolonged use. - Recent resurgence of acid reflux has b miroslava noted, correlated with increased episodes of coughing, with the patient reporting exacerbation by certain foods. As a result, the patient restarted Prilosec therapy but did not indicate previous antibiotics usage for symptoms. - denies sinus pain ear pain or head con gestion. - Residual symptoms include persistent c oughing accompanied by runny nose managed previously by allergenic pills. - tested negative for COVID at home. Physical Exam General: Cooperative, healthy appearing, comfortable and no acute distress Orientation/consciousness: Patient oriented x3 Limitations: No limitations Head: Normal to inspection Ears: Hearing grossly normal bilaterally, external ears normal and TM's normal bilaterally Nose: Normal external nose present, Normal nares present and No nasal discharge present Face and sinus: Normal facial exam and Yes sinuses nontender Mouth: Normal oral and palatal mucosa present and moist mucous membranes Throat: Yes tonsils normal, Yes uvula midline. Posterior oropharynx erythema with cobblestoning Eyes: Appearance normal, both eyes and all related structures Neck: Normal visual inspection Respiratory: Clear to auscultation bilaterally. Normal respiratory effort, able to speak in complete sentences, Actively coughing, no respiratory distress, not tachypneic, no tripod positioning and no use of accessory muscles Cardiovascular: Regular rate and rhythm. Normal S1 and S2 Skin: No rashes or lesions noted Neuro: Patient oriented x3 Extremities: Normal to inspection and Yes no clubbing, cyanosis or edema PFSH Medical History Neuropathy History of COVID-19 Surgical History History of endoscopy History of root canal procedure Family History Mother Dementia Father Cancer Other Mental health disorder Substance use disorder Social History Housing: Apartment Are you a primary insurance healthcare representative to a significant other at home: No Do you presently have visiting nurse or other home services: No Alcohol intake: current Alcohol intake frequency: holidays/special occasions only Alcohol type: beer Patient Tobacco Use Status: Never used Tobacco e-Cigarette/Vaping Use: Never Used Second Hand Smoke Exposure: No service: No Current occupational status: employed 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 Sent flu COVID and RSV testing, if this testing is negative I will send a Z-Júnior as it has been 3 weeks of a cough so it could certainly be bacterial if it is not viral. Recommended patient continue his daily allergy pill but add a decongestant, rest and hydrate. Wrote work note for today and tomorrow. If his symptoms should get worse, he should return to the clinic or go to the emergency department. Patient was informed and verbally consented to the use of an ambient scribe for clinic note documentation during this visit Orders: Orders SARS-CoV2/FLU/RSV Today R09.89 - Other specified symptoms and signs involving the circulatory and respiratory systems Coding Level of Care Code New Pt Level 3 (59460) Diagnoses Lower respiratory infection (e.g., bronchitis, pneumonia, pneumonitis, pulmonitis) J22
[2024-10-06 10:37] VITALS: BP 130/78; PULSE 86; TEMP 37.1; O2SAT 98
== END 2024-10-06 11:40 | disposition home or self-care (01) ==
PROVIDERS: PCP Nurse Practitioner Family; Visit Provider Physician Assistant
DX: J22 Unspecified acute lower respiratory infection (principal)

== ENCOUNTER 2024-10-06 10:34 | Outpatient (REF) | payer BC, SELFPAY ==
[2024-10-06 14:25] LABS: Influenza A PCR NEGATIVE (Negative); Influenza B PCR NEGATIVE (Negative); Resp Syncy Virus RNA Qual PCR NEGATIVE (Negative); SARS COV2 PCR INHOUSE NEGATIVE (Negative)
== END 2024-10-06 10:35 | disposition home or self-care (01) ==
LOC: HO.LAB 10:34
PROVIDERS: Physician Assistant; PCP Nurse Practitioner Family
DX: J22 Unspecified acute lower respiratory infection (principal); R09.89 Other specified symptoms and signs involving the circulatory and respiratory systems
CPT/HCPCS: 0241U

== ENCOUNTER 2024-10-18 10:25 | Outpatient (REF) | payer BC, SELFPAY ==
--- NOTE | ~2024-10-18 | XR_ITS ---
EXAMINATION: XR CHEST 2 VIEWS HISTORY: R05.2 - Subacute cough COMPARISON: There are no prior studies for comparison. FINDINGS: PA and lateral views of the chest are submitted. The lungs are expanded and clear. There is no pleural effusion, pneumothorax, or pulmonary vascular congestion. The heart is normal in size. The bones are intact. XR/XR chest 2V IMPRESSION: Clear lungs. Electronically signed by: Luis M Lozano MD 10/18/2024 11:52 AM EDT
== END 2024-10-18 10:26 | disposition home or self-care (01) ==
LOC: HO.HMGCX 10:25
PROVIDERS: PCP Nurse Practitioner Family; Visit Provider Nurse Practitioner Family
DX: R05.2 Subacute cough (principal)
CPT/HCPCS: 71046

== ENCOUNTER 2024-10-18 10:25 | Outpatient (AMB) | payer BC, SELFPAY ==
[2024-10-18 10:54] VITALS: BP 120/80; PULSE 93; TEMP 36.9; O2SAT 98
--- NOTE | 2024-10-18 10:54 | AM.OFFWIN_ITS ---
Intake Vital Signs 10/18/24 10:54 Weight 143 lb BP 120/80 Blood Pressure Location Rt brachial Position Sitting Pulse 93 Pulse Source Pulse Oximeter Temp 98.4 F Temp Source Oral Pulse Oximetry (%) 98 Oxygen Delivery Method Room Air Intake Visit Reasons: EP-cough Intake Note: Patient here for cough that has been present for over 4 weeks. Patient Tobacco Use Status: Never used Tobacco Allergies No Known Allergies Allergy (Verified 10/18/24 10:55) Do you need a note to return to daycare/school/sports/work: No HPI HPI Comments History of Present Illness Details 54 y/o Male patient who presents to the walk in clinic with c/o Dry Cough for 3 weeks now. Denies CP, Chest Tightness, congestion, or SOB. [facility] Medical History (Updated 10/18/24 @ 11:23 by Kathleen Cui NP) Cough Neuropathy History of COVID-19 Surgical History History of endoscopy History of root canal procedure Family History Mother Dementia Father Cancer Other Mental health disorder Substance use disorder Social History Housing: Apartment Are you a primary acute care occupational therapist to a significant other at home: No Do you presently have visiting nurse or other home services: No Alcohol intake: current Alcohol intake frequency: holidays/special occasions only Alcohol type: beer Patient Tobacco Use Status: Never used Tobacco e-Cigarette/Vaping Use: Never Used Second Hand Smoke Exposure: No service: No Current occupational status: employed 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 Cognitive needs: No Hearing needs: No Vision needs: Yes (glasses) Review of Systems Const All systems reviewed & are unremarkable except as noted in HPI and below Physical Exam Vital Signs: Last Vital Signs Temp 98.4 F 10/18/24 10:54 Pulse 93 10/18/24 10:54 BP 120/80 10/18/24 10:54 Pulse Ox 98 10/18/24 10:54 Oxygen Delivery Method Room Air 10/18/24 10:54 Const General: no acute distress Orientation/consciousness: patient oriented x3 Resp Effort & Inspection: normal respiratory effort and able to speak in complete sentences Auscultation: clear to auscultation bilaterally, no crackles, no rales, no rhonchi and no wheezes Cardio Rhythm: regular rhythm Heart sounds: S1 normal heart sound present and S2 normal heart sound present Neuro General: patient oriented x3, gait normal and moves all extremities Psych Speech and movement: Normal speech and movement present Assessment & Plan Assessment & Plan (1) Cough: Code(s): R05.9 - Cough, unspecified Qualifiers: Cough type: subacute Qualified Code(s): R05.2 - Subacute cough Plan: Ordered Chest Xray F/U with PCP. Orders: Orders XR chest 2V Today R05.2 - Subacute cough Coding Level of Care Code Est Pt Level 4 (17991) Diagnoses Subacute cough R05.2 Cough type: subacute Time Spent (min) 20
== END 2024-10-18 11:25 | disposition home or self-care (01) ==
PROVIDERS: PCP Nurse Practitioner Family; Visit Provider Nurse Practitioner Family
DX: R05.2 Subacute cough (principal)

== ENCOUNTER → 2024-10-18 11:27 | Outpatient (BNV) | payer BC, SELFPAY | PROVIDERS: PCP Nurse Practitioner Family; Visit Provider Radiology Diagnostic Radiology | DX: R05.2 Subacute cough (principal) | CPT/HCPCS: 71046 ==

== ENCOUNTER 2024-11-16 16:01 | Outpatient (AMB) | payer BC, SELFPAY ==
--- NOTE | 2024-11-16 16:10 | A.OFFPC_ITS ---
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 Accompanied by: Self / Same As Patient Allergies No Known Allergies Allergy (Verified 11/16/24 16:15) Medication List - Last Reconciled 11/16/24 by Smita Shea PA-C naproxen 500 mg PO BID PRN Tobacco use date assessed: 11/16/24 Dental Screening Dental Screen Date: 11/16/24 Did you have a dental visit in the last 12 months?: Yes Did you have a dental problem in the last 6 months where you did not have access to dental care?: No Was dental information given to patient?: Patient has dentist HPI RED Wang patient HPI Details 54-year-old male with past medical histo ry of constipation, GERD, neuropathy last seen 06/2023 coming in for transfer of care. Patient complain of colonoscopy 07/2022 repeat in 3-5 years. Presenting with a right rotator cuff tendinitis diagnosed in 2022, not significantly symptomatic at present and managed with occasional use of naproxen. Previously diagnosed with gastroesophageal reflux disease over 20 years ago, successfully managed with diet adjustments; experienced a temporary resurgence of symptoms, effectively addressed with Prilosec. Peripheral neuropathy noted in both feet for 15 years, with stable symptomatology and negative diabetes evaluation. Subject to occasional constipation, addressed by dietary adjustments; undergoes routine colonoscopic screenings with no recent symptoms reported. Scheduled cataract surgery requiring preoperative assessment, with acknowledgment of hereditary predisposition for early cataracts. Patient is scheduled to have cataract surgery December 27 with [facility] in [facility] Medical History Cough Neuropathy History of COVID-19 Surgical History History of endoscopy History of root canal procedure Family History Mother Dementia Father Cancer Other Mental health disorder Substance use disorder Social History Housing: Apartment Are you a primary child care attendant school to a significant other at home: No Do you presently have visiting nurse or other home services: No Alcohol intake: current Alcohol intake frequency: holidays/special occasions only Alcohol type: beer Patient Tobacco Use Status: Never used Tobacco e-Cigarette/Vaping Use: Never Used Second Hand Smoke Exposure: No service: No Current occupational status: employed Current occupation: [employer] Cognitive needs: No Hearing needs: No Vision needs: Yes (glasses) Questionnaire PHQ-9 Over the last 2 weeks, how often have you been bothered by any of the following problems? 1. Little interest or pleasure in doing things: not at all 2. Feeling down, depressed, or hopeless: not at all 3. Trouble falling or staying asleep, or sleeping too much: not at all 4. Feeling tired or having little energy: not at all 5. Poor appetite or overeating: not at all 6. Feeling bad about yourself - or that you are a failure or have let yourself or your family down: not at all 7. Trouble concentrating on things, such as reading the newspaper or watching television: not at all 8. Moving or speaking so slowly that other people could have noticed. Or the opposite - being so fidgety or restless that you have been moving around a lot more than usual: not at all 9. Thoughts that you would be better off or of hurting yourself in some way: not at all Total score: 0 Depression Screening Interpretation: Negative Depression Screening Done: Yes Source: Developed by Drs. Luis M Balderrama, No Thao, Mynor Ortiz and colleagues, with an educational jeremy from [employer]. Thrive Questionnaire Date Thrive assessed: 11/16/24 I am a: Patient What is your living situation today?: I have a steady place to live Within the past 12 months, did the food you bought not last and you didn't have the money to get more?: I choose not to answer this question Within the past 12 months, did you worry whether your food would run out before you got money to buy more?: I choose not to answer this question Do you have trouble paying for medicines?: I choose not to answer this question Do you have trouble getting transportation to medical appointments?: No Do you have trouble paying your heating and electricity bill?: I choose not to answer this question Do you have trouble taking care of your child, family member or friend?: No Do you have trouble with day-to-day activities such as bathing, preparing meals, shopping, managing finances, etc.?: No Are you currently unemployed and looking for a job?: No Are you interested in more education?: No Please select the resources that you would like help with: None Currently or been in a relationship where the following occur: I choose not to answer THRIVE Score: 0 AUDIT C Alcohol Use Questionnaire (AUDIT-C) 1. How often do you have a drink containing alcohol?: 2-4 times a month 2. How many drinks containing alcohol do you have on a typical day when you are drinking?: 1 or 2 3. How often do you have six or more drinks on one occasion?: Never Total Score: 2 PERRY-7 AMB Questionnaire PERRY-7 Date PERRY - 7 assessed: 11/16/24 Feeling nervous, anxious, or on edge: 0 = Not at all Not being able to stop or control worryin = Not at all Worrying too much about different things: 0 = Not at all Trouble relaxin = Not at all Being so restless that it is hard to sit still: 0 = Not at all Becoming easily annoyed or irritable: 0 = Not at all Feeling afraid as if something awful might happen: 0 = Not at all Total PERRY-7 score (0-4 normal; 5-9 mild; 10-14 moderate; 15-21 severe): 0 Source: Developed by Drs. Luis M Balderrama, No Thao, Mynor Ortiz and colleagues, with an educational jeremy from [employer]. PERRY-7 Assessment Billing PERRY-7 Assessment Tool: PERRY-7 Assessment 11521 Review of Systems Const Denies body aches, Denies chills, Denies fever(s), Denies headache(s) and Denies poor appetite Eyes Details: cataracts Reports no additional complaints ENT Denies dizziness and Denies headache(s) Card Denies chest pain, Denies syncope, Denies irregular heart rhythm, Denies lightheadedness and Denies dyspnea Resp Denies cough and Denies dyspnea GI Denies abdominal pain, Denies constipation, Reports heartburn (occasionally ), Denies diarrhea, Denies nausea and Denies vomiting Reports no additional complaints and Denies urinary frequency Musc Details: right shoulder pain Denies abnormal gait Skin/Breast Reports system reviewed and no additional complaints, except as documented Neuro Denies abnormal gait, Denies dizziness, Denies syncope and Denies headache(s) Psych Reports no additional complaints Physical exam (Primary Care) Vital Signs: Last Vital Signs Temp 97.3 F 11/16/24 16:12 Pulse 84 11/16/24 16:12 BP 120/62 11/16/24 16:12 Pulse Ox 99 11/16/24 16:12 Oxygen Delivery Method Room Air 11/16/24 16:12 BMI result Body Mass Index 23.8 Tobacco/Smoking Status: Tobacco use Status Tobacco use date assessed 11/16/24 11/16/24 16:14 Patient Tobacco Use Status Never used Tobacco 11/16/24 16:14 e-Cigarette/Vaping Use Never Used 11/16/24 16:14 PHQ-9: PHQ-9 Score PHQ-9: Total score 0 11/16/24 16:14 Depression Screening Interpretation: Negative Thrive Assessment: Date of Thrive Assessment Date Thrive assessed 11/16/24 11/16/24 16:14 Currently or been in a relationship where the following occur: I choose not to answer Const General: cooperative, healthy appearing, comfortable and no acute distress Orientation/consciousness: patient oriented x3 HENMT Head: Yes normocephalic Ears: hearing grossly normal bilaterally General nose exam: Normal external nose present Eyes General: appearance normal, both eyes and all related structures Conjunctivae: conjunctivae normal Neck Neck: Yes full ROM and Yes no lymphadenopathy Resp Effort & Inspection: normal respiratory effort Auscultation: clear to auscultation bilaterally, no crackles, no rales, no rhonchi and no wheezes Cardio Rate: regular rate Rhythm: regular rhythm Skin General skin exam: no rashes or lesions noted Neuro General: patient oriented x3 Gait exam (Neuro): Normal gait present Extrem General: Yes normal to inspection, Yes full ROM and No edema Psych Affect: normal affect Attitude: cooperative Insight: Good insight present (Psych) Judgement: Good judgement present (Psych) Coding Level of Care Code Est Pt Level 3 (94044) Diagnoses GERD (gastroesophageal reflux disease) K21.9 Right shoulder pain M25.511 Neuropathy G62.9 Additional Codes PERRY-7 Assessment Billing - PERRY-7 Assessment Tool: PERRY-7 Assessment 64309 ([id number]) Assessment & Plan Assessment & Plan (1) GERD (gastroesophageal reflux disease): Comment: diet controlled Code(s): K21.9 - Gastro-esophageal reflux disease without esophagitis Category: Medical Plan: Avoid trigger foods such as citrus, tomato products, soda, caffeine, spicy foods and other foods that may be irritating to your stomach. Avoid laying flat 3-4 hours after eating and elevate the head of the bed 30 degrees to prevent acid from moving into the esophagus. Continue with dietary modification. (2) Right shoulder pain: Code(s): M25.511 - Pain in right shoulder Category: Medical Plan: Patient having occasional right shoulder pain managed with naproxen. Continue with gentle stretching and conservative treatment with [id number] pain relievers as needed. (3) Neuropathy: Comment: 15 years and stable - toes Code(s): G62.9 - Polyneuropathy, unspecified Category: Medical Plan: Stable for the last 15 years. Denying any symptoms at this time. Plan to obtain blood work for further evaluation as well. Plan I have scheduled the patient's preoperative assessment for cataract surgery, including comprehensive metabolic and lipid panels, and diabetes screening tests. Given his stable health status, no immediate cardiac evaluation is warranted unless requested by the surgical team. His musculoskeletal complaint remains under control with analgesic use. No additional diagnostic studies for the chronic neuropathy are needed at this time. GERD management will continue with dietary measures, noting previous success with Prilosec during exacerbations. Health maintenance remains effective, with screenings ensuring appropriate follow-up timelines, particularly for prostate and colorectal health. This note was constructed using voice recognition software. While every effort has been made to ensure accuracy and baseball hand sewer, still areas may have been included sometimes these areas may affect the content or meeting of the given symptoms. Total time spent caring for the patient today was 30 minutes. This includes time spent before the visit reviewing the chart, time spent during the visit, and time spent after the visit and documentation. Patient was informed and verbally consented to the use of an ambient scribe for clinic note documentation during this visit. Orders: Orders Vitamin B12 and Folate Today G62.9 - Polyneuropathy, unspecified, Z00.00 - Encounter for general adult medical examination without abnormal findings TSH reflex Free T4 Today Z00.00 - Encounter for general adult medical examination without abnormal findings, Z13.29 - Encounter for screening for other suspected endocrine disorder PSA, Ultra Sensitive Today Z00.00 - Encounter for general adult medical examination without abnormal findings, Z12.5 - Encounter for screening for malignant neoplasm of prostate Comprehensive Met. Panel Today Z00.00 - Encounter for general adult medical examination without abnormal findings Complete Blood Count Auto Diff Today Z00.00 - Encounter for general adult medical examination without abnormal findings Vitamin D 25-OH Total Today Z00.00 - Encounter for general adult medical examination without abnormal findings Lipid Panel Today Z13.220 - Encounter for screening for lipoid disorders Free T4 (Free Thyroxine) Today Z13.29 - Encounter for screening for other suspected endocrine disorder Hemoglobin A1c Today Z13.1 - Encounter for screening for diabetes mellitus
[2024-11-16 16:12] VITALS: BP 120/62; PULSE 84; TEMP 36.3; O2SAT 99; BMI 23.8
== END 2024-11-16 16:43 | disposition home or self-care (01) ==
DX: K21.9 Gastro-esophageal reflux disease without esophagitis (principal); M25.511 Pain in right shoulder; G62.9 Polyneuropathy, unspecified

== ENCOUNTER → 2024-11-16 16:01 | Outpatient (BNVA) | payer BC, SELFPAY | PROVIDERS: PCP Nurse Practitioner Family | DX: K21.9 Gastro-esophageal reflux disease without esophagitis (principal); M25.511 Pain in right shoulder; G62.9 Polyneuropathy, unspecified | CPT/HCPCS: 96127 ==

== ENCOUNTER 2024-12-03 07:42 | Outpatient (REF) | payer BC, SELFPAY ==
[2024-12-03 08:04] LABS: MANUAL DIFF FLAG NO
[2024-12-03 08:22] LABS: Basophils Absolute Auto 0.1 X10*3/uL (0.0-0.2); Basophils Percent Auto 1.6 % (0-2); Eosinophils Absolute Auto 0.1 X10*3/uL (0.0-0.4); Eosinophils Percent Auto 2.3 % (0-4); Hemoglobin 14.6 g/dl (14.0-18.0); Lymphocytes Absolute Auto 1.3 X10*3/uL (1.2-4.9); Lymphocytes Percent Auto 34.5 % (20-40); Mean Corpuscular HGB Conc 33.2 g/dl (31.0-36.0); Mean Corpuscular Hemoglobin 28.1 pg (27.0-33.0); Mean Corpuscular Volume 84.8 fL (80.0-98.0); Mean Platelet Volume 9.6 fL (9.4-12.4); Monocytes Absolute Auto 0.3 X10*3/uL (0.1-1.2); Monocytes Percent Auto 7.8 % (2-11); Neutrophils Absolute Auto 2.1 x10*3/uL (2.0-8.3); Neutrophils Percent Auto 53.8 % (45-73); Platelet Count 242 X10*3/uL (160-400); Red Blood Count 5.19 X10*6/uL (4.60-5.80); Red Cell Distribution Width 14.6 % (11.0-16.0); White Blood Count 3.8 X10*3/uL (4.8-10.8)
[2024-12-03 08:31] LABS: Estimated Average Glucose 103 mg/dL; Hemoglobin A1c % 5.2 % (<6.0); Total Hemoglobin (HGBA1C) 3844.0938 umol/L
[2024-12-03 09:14] LABS: Alanine Aminotransferase 31 U/L (0-40); Albumin Level 4.4 g/dL (3.5-5.0); Alkaline Phosphatase 69 U/L (39-117); Anion Gap 12 (12-20); Aspartate Amino Transferase 25 U/L (5-37); Bilirubin Total 0.7 mg/dL (0.0-1.0); Blood Urea Nitrogen 12 mg/dL (9-16); Calcium 9.3 mg/dL (8.4-10.2); Carbon Dioxide 27 mmol/L (22-29); Chloride 108 mmol/L (96-108); Cholesterol 199 mg/dL (<200); Estimated Glomerular Filt Rate > 60; Glucose Random 104 mg/dL (60-115); HDL Cholesterol 60 mg/dL (>40); LDL Cholesterol Calculated 131 mg/dL (<100); Potassium 4.3 mmol/L (3.3-5.1); Sodium 143 mmol/L (135-145); Total Protein 7.2 g/dL (6.5-8.0); Triglycerides 44 mg/dL (<150)
[2024-12-03 09:22] LABS: Free T4 (Free Thyroxine) 0.81 ng/dL (0.71-1.85); Vitamin D 25-OH Total 72.4 ng/mL (>30)
[2024-12-03 09:32] LABS: Folate 13.7 ng/mL (> or = 4.0); Vitamin B12 540 pg/mL (200-900)
[2024-12-11 17:09] LABS: PSA, Ultra Sensitive 0.21 ng/mL
== END 2024-12-03 07:43 | disposition home or self-care (01) ==
LOC: HO.LAB 07:42
DX: Z00.00 Encounter for general adult medical examination without abnormal findings (principal); Z12.5 Encounter for screening for malignant neoplasm of prostate; Z13.220 Encounter for screening for lipoid disorders; G62.9 Polyneuropathy, unspecified; Z13.29 Encounter for screening for other suspected endocrine disorder; Z13.1 Encounter for screening for diabetes mellitus; Z13.6 Encounter for screening for cardiovascular disorders
CPT/HCPCS: 36415; 80053; 80061; 82306; 82607; 82746; 83036; 84153; 84439; 84443; 85025

== ENCOUNTER 2024-12-07 17:09 | Outpatient (REF) | payer BC, SELFPAY ==
[2024-12-07 17:19] LABS: Appearance Urine Clear; Color Urine Yellow; Glucose Urine UA Negative (Negative); Leukocyte Esterase Urine Negative (Negative); Nitrite Urine Negative (Negative); Specific Gravity - Urine 1.015 (1.005-1.025); Urine Blood Negative (Negative); Urine Ketones Negative (Negative); Urine Protein Negative (Neg-Trace)
== END 2024-12-07 17:10 | disposition home or self-care (01) ==
LOC: HO.LNP 17:09
PROVIDERS: Visit Provider Nurse Practitioner Family
DX: R10.9 Unspecified abdominal pain (principal); M54.50 Low back pain, unspecified
CPT/HCPCS: 81003

== ENCOUNTER 2024-12-17 15:23 | Outpatient (AMB) | payer BC, SELFPAY ==
--- NOTE | 2024-12-17 15:31 | MHC.PC.OV ---
Vital Signs 12/17/24 15:33 Height 5 ft 6 in Weight 149 lb 2 oz BMI 24.1 BP 116/74 Blood Pressure Location Lt brachial Position Sitting Pulse 88 Pulse Source Pulse Oximeter Temp 97.1 F Temp Source Temporal Artery Scan Pulse Oximetry (%) 97 Oxygen Delivery Method Room Air Intake Visit Reasons: pre op cataract surgeries Intake Note: Patient is here for a Pre-op for Cataract surgery scheduled with Ivan Fish on left eye 12/27, right eye 01/03/25. 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 Ivan Fish on left eye 12/27/24, right eye 01/03/25. No history of AK, CVA, CHF, or DM. Has had surgery and anesthesia in the past without complication. [facility] Medical History Cough Neuropathy History of COVID-19 Surgical History History of endoscopy History of root canal procedure Family History Mother Dementia Father Cancer Other Mental health disorder Substance use disorder Social History Housing: Apartment Are you a primary career information specialist to a significant other at home: No Do you presently have visiting nurse or other home services: No Alcohol intake: current Alcohol intake frequency: holidays/special occasions only Alcohol type: beer Patient Tobacco Use Status: Never used Tobacco e-Cigarette/Vaping Use: Never Used Second Hand Smoke Exposure: No service: No Current occupational status: employed 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 Cognitive needs: No Hearing needs: No Vision needs: Yes (glasses) Questionnaire Thrive Questionnaire Date Thrive assessed: 11/16/24 I am a: Patient What is your living situation today?: I have a steady place to live Within the past 12 months, did the food you bought not last and you didn't have the money to get more?: I choose not to answer this question Within the past 12 months, did you worry whether your food would run out before you got money to buy more?: I choose not to answer this question Do you have trouble paying for medicines?: I choose not to answer this question Do you have trouble getting transportation to medical appointments?: No Do you have trouble paying your heating and electricity bill?: I choose not to answer this question Do you have trouble taking care of your child, family member or friend?: No Do you have trouble with day-to-day activities such as bathing, preparing meals, shopping, managing finances, etc.?: No Are you currently unemployed and looking for a job?: No Are you interested in more education?: No Please select the resources that you would like help with: None Currently or been in a relationship where the following occur: I choose not to answer THRIVE Score: 0 PERRY-7 AMB Questionnaire PERRY-7 Date PERRY - 7 assessed: 11/16/24 Source: Developed by Drs. Luis M Balderrama, No Thao, Mynor Ortiz and colleagues, with an educational jeremy from [employer]. Review of Systems Const Denies body aches, Denies chills, Denies fever(s), Denies headache(s) and Denies poor appetite Eyes Reports no additional complaints ENT Denies dysphagia, Denies dizziness, Denies headache(s) and Denies odynophagia Card Denies chest pain, Denies syncope, Denies edema, Denies irregular heart rhythm, Denies lightheadedness and Denies dyspnea Resp Denies cough and Denies dyspnea GI Denies abdominal pain, Denies constipation, Denies dysphagia, Denies diarrhea, Denies nausea, Denies odynophagia and Denies vomiting Reports no additional complaints Musc Reports no additional complaints and Denies abnormal gait Skin/Breast Reports system reviewed and no additional complaints, except as documented Neuro Denies abnormal gait, Denies dizziness, Denies syncope and Denies headache(s) Psych Reports no additional complaints Physical exam (Primary Care) Vital Signs: Last Vital Signs Temp 97.1 F 12/17/24 15:33 Pulse 88 12/17/24 15:33 BP 116/74 12/17/24 15:33 Pulse Ox 97 12/17/24 15:33 Oxygen Delivery Method Room Air 12/17/24 15:33 BMI result Body Mass Index 24.1 Tobacco/Smoking Status: Tobacco use Status Tobacco use date assessed 12/17/24 12/17/24 15:40 Patient Tobacco Use Status Never used Tobacco 12/17/24 15:40 e-Cigarette/Vaping Use Never Used 12/17/24 15:40 Thrive Assessment: Date of Thrive Assessment Date Thrive assessed 11/16/24 12/17/24 15:40 Currently or been in a relationship where the following occur: I choose not to answer Const General: cooperative, healthy appearing, comfortable and no acute distress Orientation/consciousness: patient oriented x3 HENMT Head: Yes normocephalic Ears: hearing grossly normal bilaterally General nose exam: Normal external nose present Eyes General: appearance normal, both eyes and all related structures Conjunctivae: conjunctivae normal Neck Neck: Yes full ROM and Yes no lymphadenopathy Resp Effort & Inspection: normal respiratory effort Auscultation: clear to auscultation bilaterally, no crackles, no rales, no rhonchi and no wheezes Cardio Rate: regular rate Rhythm: regular rhythm Skin General skin exam: no rashes or lesions noted Neuro General: patient oriented x3 Gait exam (Neuro): Normal gait present Extrem General: Yes normal to inspection, Yes full ROM and No edema Psych Affect: normal affect Attitude: cooperative Insight: Good insight present (Psych) Judgement: Good judgement present (Psych) Coding Level of Care Code Est Pt Level 3 (25037) Diagnoses Pre-op exam Z01.818 Assessment & Plan Assessment & Plan (1) Pre-op exam: Code(s): Z01.818 - Encounter for other preprocedural examination Category: Medical Plan: Regarding preop clearance, the patient is at low risk for proposed surgery due to age and lack of comorbidities.. Reviewed with the patient that no surgery is completely free of risk and that this examination is to assist the surgeon in reviewing informed consent. Blood work evaluated. No further workup needed at this time and may proceed with the contemplated procedure. Thank you very much for letting me participate in the care of this patient Plan This note was constructed using voice recognition software. While every effort has been made to ensure accuracy and sergeant at arms, still areas may have been included sometimes these areas may affect the content or meeting of the given symptoms. Total time spent caring for the patient today was 30 minutes. This includes time spent before the visit reviewing the chart, time spent during the visit, and time spent after the visit and documentation. Patient was informed and verbally consented to the use of an ambient scribe for clinic note documentation during this visit.
[2024-12-17 15:33] VITALS: BP 116/74; PULSE 88; TEMP 36.2; O2SAT 97; BMI 24.1
== END 2024-12-17 16:16 | disposition home or self-care (01) ==
LOC: HO.HMCH 15:24
DX: Z01.818 Encounter for other preprocedural examination (principal)

== ENCOUNTER 2025-04-11 13:51 | Outpatient (AMB) | payer BC, SELFPAY ==
[2025-04-11 13:54] VITALS: BP 130/78; PULSE 86; TEMP 36.7; O2SAT 97; BMI 25.0
--- NOTE | 2025-04-11 13:54 | MHC.OFFWIV ---
Intake Vital Signs 04/11/25 13:54 Height 5 ft 6 in Weight 155 lb BMI 25.0 BP 130/78 Blood Pressure Location Lt brachial Position Sitting Pulse 86 Pulse Source Pulse Oximeter Temp 98.1 F Temp Source Oral Pulse Oximetry (%) 97 Oxygen Delivery Method Room Air Intake Visit Reasons: EP-?kidney infection Intake Note: pt presents with urine urgency with very little urine output, LT flank discomfort Patient Tobacco Use Status: Never used Tobacco Allergies No Known Allergies Allergy (Verified 04/11/25 13:58) Do you need a note to return to daycare/school/sports/work: Yes HPI HPI Comments History of Present Illness Details History - The patient is a 55-year-old male presenting with urinary urgency and suspected urinary tract infection. - Reports significant urgency to urinate, especially at work, with instances of inability to urinate despite the urge. - Symptoms include slight burning during urination, raising concerns about a urinary tract infection or kidney infection. - Mild back discomfort noted, more pronounced when sitting or driving. - No hematuria, discharge, fever, or chills, though the patient felt feverish earlier without a confirmed fever. - Denies history of diabetes and is not on medications causing increased urination, except for infrequent naproxen use. - Reports frequent indigestion, a regular occurrence not linked to current urinary symptoms. - Had a kidney stone in the past. - Has no new sexual partner. - Denies fever, chills, CP, SOB, blood in urine, n/v/d. Physical Exam General: Cooperative, healthy appearing, comfortable, no acute distress and well developed Cardiac: Normal S1 and S2. RRR, no M/R/G noted. Respiratory: Normal respiratory effort and able to speak in complete sentences. Clear to auscultation bilaterally. No w/r/r noted. Skin: No rashes or lesions noted. GI: Normal inspection. Normal BS noted. Soft, non-tender, non-distended. No TTP of all 4 quadrants. No guarding or rebound tenderness noted. Back: Negative CVA bilaterally. Patient was informed and verbally consented to the use of an ambient scribe for clinic note documentation during this visit. [facility] Medical History Cough Neuropathy History of COVID-19 Surgical History History of endoscopy History of root canal procedure Family History Mother Dementia Father Cancer Other Mental health disorder Substance use disorder Social History Housing: Apartment Are you a primary progressive care unit registered nurse to a significant other at home: No Do you presently have visiting nurse or other home services: No Alcohol intake: current Alcohol intake frequency: holidays/special occasions only Alcohol type: beer Patient Tobacco Use Status: Never used Tobacco e-Cigarette/Vaping Use: Never Used Second Hand Smoke Exposure: No service: No Current occupational status: employed Current occupation: [employer] Cognitive needs: No Hearing needs: No Vision needs: Yes (glasses) Review of Systems Const All systems reviewed & are unremarkable except as noted in HPI and below Physical Exam Vital Signs: Last Vital Signs Temp 98.1 F 04/11/25 13:54 Pulse 86 04/11/25 13:54 BP 130/78 04/11/25 13:54 Pulse Ox 97 04/11/25 13:54 Oxygen Delivery Method Room Air 04/11/25 13:54 BMI result Body Mass Index 25.0 Assessment & Plan Assessment & Plan (1) Urinary urgency: Code(s): R39.15 - Urgency of urination Plan Most likely UTI vs stone UA negative in the office Plan - Start antibiotics for suspected urinary tract infection, pending culture results. - Discontinue antibiotics if culture results are negative. - Follow up with preliminary culture results expected by the next day. - drink lots of fluids - advised to watch for fever, chills, n/v, blood in the urine, etc Orders: Orders Urine Culture Today N39.0 - Urinary tract infection, site not specified Medications: New cefuroxime axetil 500 mg PO Q12H 10 tabs 0RF Coding Level of Care Code Est Pt Level 3 (77246) Diagnoses Urinary urgency R39.15
== END 2025-04-11 14:55 | disposition home or self-care (01) ==
PROVIDERS: Visit Provider Physician Assistant Medical
DX: Z13.9 Encounter for screening, unspecified (principal); R39.15 Urgency of urination

== ENCOUNTER 2025-04-11 13:51 | Outpatient (REF) | payer BC, SELFPAY | END 2025-04-11 13:52 | disposition home or self-care (01) | LOC: HO.LNP 13:51 | PROVIDERS: Visit Provider Physician Assistant Medical | DX: R39.15 Urgency of urination (principal) | CPT/HCPCS: 81003; 87086 ==

== ENCOUNTER 2025-04-15 06:16 | Outpatient (REF) | payer BC, SELFPAY ==
[2025-04-20 21:12] LABS: PSA, Ultra Sensitive 0.24 ng/mL
== END 2025-04-15 06:17 | disposition home or self-care (01) ==
LOC: HO.HMGCLDS 06:16
DX: Z12.5 Encounter for screening for malignant neoplasm of prostate (principal); N40.1 Benign prostatic hyperplasia with lower urinary tract symptoms; R39.15 Urgency of urination; R39.11 Hesitancy of micturition; R39.198 Other difficulties with micturition
CPT/HCPCS: 36415; 84153

== ENCOUNTER 2025-04-15 08:55 | Outpatient (AMB) | payer BC, SELFPAY ==
[2025-04-15 09:00] VITALS: BP 132/88; PULSE 85; RESP 18; TEMP 36.2; O2SAT 970; BMI 24.7
--- NOTE | 2025-04-15 09:00 | MHC.PC.OV ---
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 Required: No Accompanied by: Self / Same As Patient Allergies No Known Allergies Allergy (Verified 04/15/25 09:00) Medication List - Last Reconciled 04/15/25 by Reece Mancilla MD cefuroxime axetil 500 mg PO Q12H naproxen 500 mg PO BID PRN Tobacco use date assessed: 04/15/25 Dental Screening Dental Screen Date: 04/15/25 Did you have a dental visit in the last 12 months?: Yes Did you have a dental problem in the last 6 months where you did not have access to dental care?: No Was dental information given to patient?: Patient has dentist HPI HPI Comments History of Present Illness Details The patient is a 55-year-old male presenting with urinary frequency and urgency. The symptoms began acutely on Friday with an urge to urinate every 15 minutes, sometimes resulting in minimal output. Prior to this, the patient experienced a gradual increase in urgency over several days, initially attributed to coffee consumption. The patient visited urgent care suspecting a urinary tract infection or kidney infection, but the urine sample returned negative for infection. Despite starting antibiotics, the symptoms have worsened, with persistent urgency and minimal urinary output. The patient reports a slight burning sensation during urination but denies significant pain or back discomfort, reducing the likelihood of a kidney stone. A PSA test was ordered but not yet completed, and the patient has been started on tamsulosin to address potential prostate issues. [facility] Medical History Cough Neuropathy History of COVID-19 Surgical History History of endoscopy History of root canal procedure Family History Mother Dementia Father Cancer Other Mental health disorder Substance use disorder Social History Housing: Apartment Are you a primary transitional care manager to a significant other at home: No Do you presently have visiting nurse or other home services: No Alcohol intake: current Alcohol intake frequency: holidays/special occasions only Alcohol type: beer Patient Tobacco Use Status: Never used Tobacco e-Cigarette/Vaping Use: Never Used Second Hand Smoke Exposure: No service: No Current occupational status: employed 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 Cognitive needs: No Hearing needs: No Vision needs: Yes (glasses) Questionnaire Thrive Questionnaire Date Thrive assessed: 11/16/24 I am a: Patient What is your living situation today?: I have a steady place to live Within the past 12 months, did the food you bought not last and you didn't have the money to get more?: I choose not to answer this question Within the past 12 months, did you worry whether your food would run out before you got money to buy more?: I choose not to answer this question Do you have trouble paying for medicines?: I choose not to answer this question Do you have trouble getting transportation to medical appointments?: No Do you have trouble paying your heating and electricity bill?: I choose not to answer this question Do you have trouble taking care of your child, family member or friend?: No Do you have trouble with day-to-day activities such as bathing, preparing meals, shopping, managing finances, etc.?: No Are you currently unemployed and looking for a job?: No Are you interested in more education?: No Please select the resources that you would like help with: None Currently or been in a relationship where the following occur: I choose not to answer THRIVE Score: 0 PERRY-7 AMB Questionnaire PERRY-7 Date PERRY - 7 assessed: 11/16/24 Source: Developed by Drs. Luis M Balderrama, No Thao, Mynor Ortiz and colleagues, with an educational jeremy from [employer] Review of Systems Const Details: Positives besides what was mentioned in HPI are in BOLD Constitutional: No Weight Change, No Fever, No Chills, No Night Sweats, No Fatigue, No Malaise ENT/Mouth: No Hearing Changes, No Ear Pain, No Nasal Congestion, No Sinus Pain, No Hoarseness, No sore throat, No Rhinorrhea, No Swallowing Difficulty Eyes: No Eye Pain, No Swelling, No Redness, No Foreign Body, No Discharge, No Vision Changes Cardiovascular: No Chest Pain, No SOB, No PND, No Dyspnea on Exertion, No Orthopnea, No Claudication, No Edema, No Palpitations Respiratory: No Cough, No Sputum, No Wheezing, No Smoke Exposure, No Dyspnea Gastrointestinal: No Nausea, No Vomiting, No Diarrhea, No Constipation, No Pain, No Heartburn, No Anorexia, No Dysphagia, No Hematochezia, No Melena, No Flatulence, No Jaundice Genitourinary: No Dysmenorrhea, No DUB, No Dyspareunia, No Dysuria, No Urinary Frequency, No Hematuria, No Urinary Incontinence, No Urgency, No Flank Pain, No Urinary Flow Changes, No Hesitancy Musculoskeletal: No Arthralgias, No Myalgias, No Joint Swelling, No Joint Stiffness, No Back Pain, No Neck Pain, No Injury History Skin: No Skin Lesions, No Pruritis, No Hair Changes, No Breast/Skin Changes, No Nipple Discharge Neuro: No Weakness, No Numbness, No Paresthesias, No Loss of Consciousness, No Syncope, No Dizziness, No Headache, No Coordination Changes, No Recent Falls Psych: No Anxiety/Panic, No Depression, No Insomnia, No Personality Changes, No Delusions, No Rumination, No SI/HI/AH/VH, No Social Issues, No Memory Changes, No Violence/Abuse Hx., No Eating Concerns Heme/Lymph: No Bruising, No Bleeding, No Transfusions History, No Lymphadenopathy Endocrine: No Polyuria, No Polydipsia, No Temperature Intolerance Physical exam (Primary Care) Vital Signs: Last Vital Signs Temp 97.1 F 04/15/25 09:00 Pulse 85 04/15/25 09:00 Resp 18 04/15/25 09:00 BP 132/88 04/15/25 09:00 Pulse Ox 970 H 04/15/25 09:00 Oxygen Delivery Method Room Air 04/15/25 09:00 BMI result Body Mass Index 24.7 Tobacco/Smoking Status: Tobacco use Status Tobacco use date assessed 04/15/25 04/15/25 09:06 Patient Tobacco Use Status Never used Tobacco 04/15/25 09:06 e-Cigarette/Vaping Use Never Used 04/15/25 09:06 Thrive Assessment: Date of Thrive Assessment Date Thrive assessed 11/16/24 04/15/25 09:06 Currently or been in a relationship where the following occur: I choose not to answer Const Other: Pertinent findings are in BOLD GENERAL APPEARANCE NAD, activity normal for age, well developed/ well nourished, no cyanosis, pallor, or diaphoresis. EYES lids/conjunctiva normal. EARS/NOSE/THROAT Mucous membranes moist, nares normal, lips/teeth normal uvula midline without oral pharyngeal erythema, exudate or swelling TMs normal bilaterally. No lymphangitis/lymphedema. HEAD/NECK normocephalic atraumatic, no facial trauma, neck is supple. RESPIRATORY respiratory effort normal, speaks in full sentences, no tripod position, no accessory muscle use. Lungs clear to auscultation without rhonchi, wheezes, rales CARDIAC Regular rate and rhythm, no edema. ABDOMINAL Soft, ND/NT. No evidence of fluid wave. No pulsatile masses on exam, rebound tenderness, Guillaume sign or pain over Mcburney's point. MUSCLES/EXTREMITIES No abnormal range of motion, no swelling. SKIN Warm, pink and dry. No rashes, dermatoses, petechiae or lesions. NEUROLOGICAL Speech is clear and appropriate. Normal level of consciousness. Gait and coordination are normal. 5/5 strength in all extremities. PSYCH Normal mood and affect. Judgement/competence is appropriate Coding Level of Care Code Est Pt Level 4 (74270) Diagnoses Urinary urgency R39.15 Benign prostatic hyperplasia with urinary hesitancy N40.1; R39.11 Lower urinary tract symptom presence: symptoms present Lower urinary tract symptom detail: urinary hesitancy Time Spent (min) 30 Assessment & Plan Assessment & Plan (1) Urinary urgency: Code(s): R39.15 - Urgency of urination Category: Medical Plan: - Initiate tamsulosin to address potential prostate enlargement. - Refer to urology for further evaluation and management. (2) BPH (benign prostatic hyperplasia): Comment: Suspected Code(s): N40.0 - Benign prostatic hyperplasia without lower urinary tract symptoms Category: Medical Qualifiers: Lower urinary tract symptom presence: symptoms present Lower urinary tract symptom detail: urinary hesitancy Qualified Code(s): N40.1 - Benign prostatic hyperplasia with lower urinary tract symptoms; R39.11 - Hesitancy of micturition Plan: - Start tamsulosin to alleviate urinary symptoms. - Await results of PSA test for further assessment. - Follow up with urology for comprehensive evaluation. Plan I discussed with the patient the possibility of benign prostatic hyperplasia as a cause for his urinary symptoms. We agreed to start tamsulosin to help alleviate symptoms and referred him to urology for further evaluation. I explained that the PSA test results would provide additional information, and we would adjust the treatment plan based on urology's recommendations. 30 Minutes This includes time spent before the visit reviewing the chart, time spent during the visit, and time spent after the visit and documentation. Orders: Referrals Urology Referral R39.15 - Urgency of urination Medications: New tamsulosin 0.4 mg PO DAILY 30 caps 3RF
== END 2025-04-15 09:31 | disposition home or self-care (01) ==
LOC: HO.HMCH 08:56
PROVIDERS: Visit Provider Internal Medicine
DX: N40.1 Benign prostatic hyperplasia with lower urinary tract symptoms (principal); R39.15 Urgency of urination; R39.11 Hesitancy of micturition

== ENCOUNTER 2025-06-16 14:55 | Outpatient (REF) | payer BC, SELFPAY ==
--- NOTE | ~2025-06-16 | US_ITS ---
EXAMINATION: US PELVIS LIMITED (BLADDER) CLINICAL INFORMATION: R39.15. COMPARISON: None available. TECHNIQUE: Real-time imaging of the bladder. FINDINGS: BLADDER: Fluid-filled without intraluminal abnormalities or gross wall thickening. Bilateral ureteral jets are demonstrated. Prevoid bladder volume is 240 mL. Postvoid bladder volume is 73 mL. Prostate gland measures 3 x 3 x 3 cm, volume: 15 disease. US/US bladder IMPRESSION: 73 cc of residual amount of urine in a post void image. Prostate gland volume: 15 cc.. Electronically signed by: Ramiro Johnson MD 06/16/2025 03:46 PM EST RP
== END 2025-06-16 14:56 | disposition home or self-care (01) ==
LOC: HO.US 14:55
DX: R39.15 Urgency of urination (principal); R39.198 Other difficulties with micturition
CPT/HCPCS: 76857

== ENCOUNTER → 2025-06-16 14:58 | Outpatient (BNV) | payer BC, SELFPAY | PROVIDERS: Visit Provider Radiology Diagnostic Radiology | DX: R39.15 Urgency of urination (principal) | CPT/HCPCS: 76857 ==

== ENCOUNTER 2025-06-22 09:25 | Outpatient (AMB) | payer BC, SELFPAY ==
--- NOTE | 2025-06-22 09:38 | MHC.PC.OV ---
Vital Signs 06/22/25 09:39 Height 5 ft 6 in Weight 155 lb BMI 25.0 BP 136/72 Blood Pressure Location Lt brachial Position Sitting Pulse 69 Pulse Source Pulse Oximeter Temp 97.3 F Temp Source Temporal Artery Scan Pulse Oximetry (%) 98 Oxygen Delivery Method Room Air Intake Visit Reasons: annual exam Intake Note: Patient is here today for a physical. 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 Lee coming in for annual exam. Presenting with long-standing lower urinary tract symptoms. His urinary issues began several years ago with a slow stream and a feeling of taking longer to urinate. Subsequently, symptoms worsened around February or March with the new onset of urinary urgency, particularly during car rides, and increased frequency, leading him to visit a walk-in clinic for a suspected kidney infection, which was ruled out. He reports symptoms consistent with prostate issues, including frequency, incomplete emptying, slow stream, urgency, and dribbling; symptoms fluctuate, with periods of improvement followed by exacerbations. Recent investigations include a PSA level of 0.24 ng/mL and a bladder ultrasound showing a prostate volume of 15 cc and a post-void residual of 73 mL. He has been taking tamsulosin for about two months but does not feel it is helping with complete bladder emptying or urgency, and he takes it intermittently. Car rides are a significant problem, with an urge to urinate within 15 minutes regardless of fluid intake. PSA: 04/2025 colo: 2022 vaccines: Tdap UTD declines flu PFSH Medical History Cough Neuropathy History of COVID-19 Surgical History History of bilateral cataract extraction History of endoscopy History of root canal procedure Family History Mother Dementia Father Cancer Other Mental health disorder Substance use disorder Social History Housing: Apartment Are you a primary critical care nurse specialist to a significant other at home: No Do you presently have visiting nurse or other home services: No Alcohol intake: current Alcohol intake frequency: holidays/special occasions only Alcohol type: beer Patient Tobacco Use Status: Never used Tobacco e-Cigarette/Vaping Use: Never Used Second Hand Smoke Exposure: No service: No Current occupational status: employed Current occupation: [employer] Cognitive needs: No Hearing needs: No Vision needs: Yes (glasses) Questionnaire PHQ-9 Over the last 2 weeks, how often have you been bothered by any of the following problems? 1. Little interest or pleasure in doing things: not at all 2. Feeling down, depressed, or hopeless: not at all 3. Trouble falling or staying asleep, or sleeping too much: not at all 4. Feeling tired or having little energy: not at all 5. Poor appetite or overeating: not at all 6. Feeling bad about yourself - or that you are a failure or have let yourself or your family down: not at all 7. Trouble concentrating on things, such as reading the newspaper or watching television: not at all 8. Moving or speaking so slowly that other people could have noticed. Or the opposite - being so fidgety or restless that you have been moving around a lot more than usual: not at all 9. Thoughts that you would be better off or of hurting yourself in some way: not at all Total score: 0 Depression Screening Interpretation: Negative Depression Screening Done: Yes Source: Developed by Drs. Luis M Balderrama, No Thao, Mynor Ortiz and colleagues, with an educational jeremy from [employer]. Thrive Questionnaire Date Thrive assessed: 11/16/24 I am a: Patient What is your living situation today?: I have a steady place to live Within the past 12 months, did the food you bought not last and you didn't have the money to get more?: I choose not to answer this question Within the past 12 months, did you worry whether your food would run out before you got money to buy more?: I choose not to answer this question Do you have trouble paying for medicines?: I choose not to answer this question Do you have trouble getting transportation to medical appointments?: No Do you have trouble paying your heating and electricity bill?: I choose not to answer this question Do you have trouble taking care of your child, family member or friend?: No Do you have trouble with day-to-day activities such as bathing, preparing meals, shopping, managing finances, etc.?: No Are you currently unemployed and looking for a job?: No Are you interested in more education?: No Please select the resources that you would like help with: None Currently or been in a relationship where the following occur: I choose not to answer THRIVE Score: 0 PERRY-7 AMB Questionnaire PERRY-7 Date PERRY - 7 assessed: 11/16/24 Source: Developed by Drs. Luis M Balderrama, No Thao, Mynor Ortiz and colleagues, with an educational jeremy from [employer]. Review of Systems Const Denies body aches, Denies fatigue, Denies fever(s), Denies frequent falls, Denies headache(s) and Denies weakness Eyes Reports no additional complaints and Denies change in vision ENT Denies dysphagia, Denies dizziness, Denies facial pain, Denies headache(s), Denies nasal congestion and Denies odynophagia Card Denies chest pain, Denies syncope, Denies irregular heart rhythm, Denies leg edema, Denies lightheadedness and Denies dyspnea Resp Denies cough and Denies dyspnea GI Denies constipation, Denies dysphagia, Denies dyspepsia, Denies diarrhea, Denies nausea, Denies odynophagia and Denies vomiting Reports as per HPI, Denies dysuria, Reports urinary frequency, Denies urinary hesitancy and Reports urinary urgency Musc Denies back pain and Denies myalgias Skin/Breast Reports system reviewed and no additional complaints, except as documented Neuro Denies dizziness, Denies syncope, Denies frequent falls, Denies headache(s) and Denies weakness Psych Reports no additional complaints Endo Denies fatigue Physical exam (Primary Care) Vital Signs: Last Vital Signs Temp 97.3 F 06/22/25 09:39 Pulse 69 06/22/25 09:39 BP 136/72 06/22/25 09:39 Pulse Ox 98 06/22/25 09:39 Oxygen Delivery Method Room Air 06/22/25 09:39 BMI result Body Mass Index 25.0 Tobacco/Smoking Status: Tobacco use Status Tobacco use date assessed 06/22/25 06/22/25 09:43 Patient Tobacco Use Status Never used Tobacco 06/22/25 09:43 e-Cigarette/Vaping Use Never Used 06/22/25 09:43 PHQ-9: PHQ-9 Score PHQ-9: Total score 0 06/22/25 10:10 Depression Screening Interpretation: Negative Thrive Assessment: Date of Thrive Assessment Date Thrive assessed 11/16/24 06/22/25 09:43 Currently or been in a relationship where the following occur: I choose not to answer Const General: cooperative, healthy appearing, comfortable and no acute distress Orientation/consciousness: patient oriented x3 HENMT Head: Yes normocephalic Ears: hearing grossly normal bilaterally, external ears normal, TM's normal bilaterally and EAC's normal General nose exam: Normal external nose present Face and sinus: Yes normal facial exam and Yes sinuses nontender Mouth: Normal oral and palatal mucosa present and tongue normal Throat: Yes posterior oropharynx normal Eyes General: appearance normal, both eyes and all related structures Conjunctivae: conjunctivae normal Pupils: Equal, round and reactive pupils present EOM: EOMs intact bilaterally and No Nystagmus present Neck Neck: Yes normal visual inspection, Yes full ROM and Yes no lymphadenopathy Chest Chest palpation & inspection: normal inspection of the chest Resp Effort & Inspection: normal respiratory effort Auscultation: clear to auscultation bilaterally, no crackles, no rales, no rhonchi, no wheezes and breath sounds present Cardio Rate: regular rate Rhythm: regular rhythm Peripheral pulses: radial pulses present and dorsalis pedis present GI Inspection: Yes normal to inspection and No Abdominal wall edema Palpation (GI): Soft to palpation, not firm and nontender Auscultation: normal bowel sounds Rectal Exam - Male: Yes deferred General: Yes no CVA tenderness Back/Spine/Pelvis Back: no CVA tenderness Skin General skin exam: no rashes or lesions noted Neuro General: patient oriented x3 Cranial nerves: Yes Equal, round and reactive pupils present, Yes Midline tongue present, Yes Ability to bilaterally elevate shoulders present and No Nystagmus present Gait exam (Neuro): Normal gait present Extrem General: Yes normal to inspection, Yes full ROM, No no pedal edema and No edema Psych Speech and movement: Normal speech and movement present Affect: normal affect Insight: Good insight present (Psych) Judgement: Good judgement present (Psych) Coding Level of Care Code Est Pt Prev Care 40-64y(07730) Diagnoses Annual physical exam Z00.00 GERD (gastroesophageal reflux disease) K21.9 Urinary urgency R39.15 Neuropathy G62.9 Decreased hearing H91.90 Assessment & Plan Assessment & Plan (1) Annual physical exam: Code(s): Z00.00 - Encounter for general adult medical examination without abnormal findings Category: Medical Plan: Patient is up-to-date on all recommended routine screenings and vaccinations for his age. Blood work is up-to-date and has been reviewed with the patient today. Healthy diet and regular exercise is encouraged. I did ordered for updated blood work to be completed and 5 months (2) GERD (gastroesophageal reflux disease): Comment: diet controlled Code(s): K21.9 - Gastro-esophageal reflux disease without esophagitis Category: Medical Plan: Avoid trigger foods such as citrus, tomato products, soda, caffeine, spicy foods and other foods that may be irritating to your stomach. Avoid laying flat 3-4 hours after eating and elevate the head of the bed 30 degrees to prevent acid from moving into the esophagus. (3) Urinary urgency: Code(s): R39.15 - Urgency of urination Category: Medical Plan: Had bladder US which revealed normal prostate and high normal PVR. He has appointment later this month with Urology. Symptoms consistent with overactive bladder. Plan to trial Oxybutynin and follow up with Urology later this month. The patient's symptoms of urinary urgency, frequency, and sensation of incomplete emptying, despite a normal-sized prostate (15 cc) and a low PSA (0.24), suggest overactive bladder. The post-void residual of 73 mL is on the higher end of normal, but does not fully explain the degree of his symptoms. He will start Oxybutynin daily to help with urgency and continue tamsulosin for now. Potential side effects of oxybutynin were discussed. He will proceed with his upcoming urology appointment for further evaluation. (4) Neuropathy: Comment: 15 years and stable - toes Code(s): G62.9 - Polyneuropathy, unspecified Category: Medical Plan: Stable, no concerns today. (5) Decreased hearing: Code(s): H91.90 - Unspecified hearing loss, unspecified ear Category: Medical Plan: Referral was placed for hearing test at patient request Plan This note was constructed using voice recognition software. While every effort has been made to ensure accuracy and electrical repairer, still areas may have been included sometimes these areas may affect the content or meeting of the given symptoms. Total time spent caring for the patient today was 30 minutes. This includes time spent before the visit reviewing the chart, time spent during the visit, and time spent after the visit and documentation. Patient was informed and verbally consented to the use of an ambient scribe for clinic note documentation during this visit. Orders: Orders TSH reflex Free T4 5 Months Z13.29 - Encounter for screening for other suspected endocrine disorder Vitamin B12 and Folate 5 Months Z13.21 - Encounter for screening for nutritional disorder Vitamin D 25-OH Total 5 Months Z13.21 - Encounter for screening for nutritional disorder Lipid Panel 5 Months Z13.220 - Encounter for screening for lipoid disorders Comprehensive Met. Panel 5 Months Z13.1 - Encounter for screening for diabetes mellitus Complete Blood Count Auto Diff 5 Months Z13.0 - Encounter for screening for diseases of the blood and blood-forming organs and certain disorders involving the immune mechanism Hemoglobin A1c 5 Months Z13.1 - Encounter for screening for diabetes mellitus Referrals Speech and Hearing Referral H91.90 - Unspecified hearing loss, unspecified ear Medications: New oxybutynin chloride ER 5 mg PO DAILY 30 tabs 0RF
[2025-06-22 09:39] VITALS: BP 136/72; PULSE 69; TEMP 36.3; O2SAT 98; BMI 25.0
== END 2025-06-22 10:26 | disposition home or self-care (01) ==
LOC: HO.HMCH 09:25
DX: Z00.00 Encounter for general adult medical examination without abnormal findings (principal); K21.9 Gastro-esophageal reflux disease without esophagitis; R39.15 Urgency of urination; G62.9 Polyneuropathy, unspecified; H91.90 Unspecified hearing loss, unspecified ear

== ENCOUNTER 2025-07-11 07:58 | Outpatient (AMB) | payer BC, SELFPAY ==
--- NOTE | 2025-07-11 08:04 | A.OFFVIS_ITS ---
Intake Visit Reasons: Urinary Urgency/BPH/UA/PVR(set) Intake Note: Reason for Visit: New Patient is present for Urinary Urgency/Difficulty Urination/BPH Urology Meds: Tamsulosin, Oxybutynin Blood Thinners: Aspirin as needed Labs: PSA Ultra-Sensitive- 0.24(04/15/2025) Imaging: Bladder Ultrasound- 06/16/2025 Urine Culture: 04/11/2025 Last PVR: none Todays PVR: 0ML Family History: Prostate Cancer? Yes, Brother possibly has Prostate Cancer. Bladder Cancer? No Kidney Cancer? No Smoking History? Never Previous Urology? No. Coal Digger Required: No Accompanied by: Self / Same As Patient Allergies No Known Allergies Allergy (Verified 07/11/25 08:05) Medication List - Last Reconciled 07/11/25 by Vi Bush MD aspirin (Adult Low Dose Aspirin) 81 mg PO .prn naproxen 500 mg PO BID PRN oxybutynin chloride ER 5 mg PO DAILY tamsulosin 0.4 mg PO DAILY HPI Comments Details: Jamshid is a 55-year-old male who is here as new patient evaluation for BPH and lower urinary tract symptoms of urgency AUA symptom score 15/35. He had a bladder ultrasound on 06/16/2025. PSA on 04/25/2025 0 for. The patient was treated with tamsulosin which he felt was ineffective as well as oxybutynin which he continues to use and helps with his urgency. For several years, he has experienced a weak urinary stream and a sensation of incomplete bladder emptying, which he had come to consider normal. He states he had previously discussed these symptoms with his primary care physicians, who had ruled out prostate enlargement. His symptoms acutely worsened in mid-March with the onset of significant urinary urgency, which has disrupted his ability to take car trips longer than 15 minutes without planning for bathroom stops. By the end of March, the urgency became intense, causing him to run to the bathroom every 20 minutes, sometimes with little urine output. He initially suspected a kidney infection, but a urinalysis performed by his primary care physician was negative. He was treated with tamsulosin starting on April 15 but found it to be ineffective in improving his urinary flow after taking it daily for five to six weeks. He began taking oxybutynin on June 22 and reports it has been very effective in reducing the urgency, allowing him to postpone urination. He notes that the onset of these symptoms coincided with a period of significant stress. His past medical history includes a suspected kidney stone episode approximately five years ago. Results - Tests and Diagnostics - AUA Symptom Score: 15/35. - Bladder Ultrasound (06/16/2025): No significant findings; prostate appeared small, estimated volume 15 mL. - Labs - PSA (04/25/2025): 0.24 ng/mL. - Urinalysis: Negative for infection. Plan 1. Benign Prostatic Hyperplasia (Bph) With Lower Urinary Tract Symptoms 2. Overactive Bladder - The patient presents with bothersome LUTS, including a chronic weak stream and a more recent, acute onset of severe urgency. - Despite a normal PSA and a small prostate on ultrasound, there remains a concern for an obstructive component within the prostatic urethra, which may be contributing to the patient's symptoms. - It was explained that chronic obstruction can lead to bladder muscle thicken ing and spasms, which are perceived as urgency. - Plan is to perform an in-office cystoscopy to directly visualize the bladder and prostatic urethra. - A kidney ultrasound will also be ordered to rule out any underlying pathology like non-obstructing kidney stones. - The patient was counseled to limit coffee intake, as it can be a bladder irritant and worsen his symptoms. - The patient's primary complaint of urinary urgency has responded very well to oxybutynin. - He finds a trial of tamsulosin was ineffective. - A 90-day prescription for oxybutynin will be refilled to continue managing his symptoms. - The patient expressed a desire to avoid long-term medication if possible. - The contribution of stress as a potential exacerbating factor for his symptoms was discussed. [facility] Medical History Cough Neuropathy History of COVID-19 Surgical History History of bilateral cataract extraction History of endoscopy History of root canal procedure Family History Mother Dementia Father Cancer Other Mental health disorder Substance use disorder Social History Housing: Apartment Are you a primary care taker to a significant other at home: No Do you presently have visiting nurse or other home services: No Alcohol intake: current Alcohol intake frequency: holidays/special occasions only Alcohol type: beer Patient Tobacco Use Status: Never used Tobacco e-Cigarette/Vaping Use: Never Used Second Hand Smoke Exposure: No service: No Current occupational status: employed 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 Cognitive needs: No Hearing needs: No Vision needs: Yes (glasses) Review of Systems Const All systems reviewed & are unremarkable except as noted in HPI and below Reports no additional complaints Eyes Reports no additional complaints ENT Reports no additional complaints Card Reports no additional complaints Resp Reports no additional complaints GI Reports no additional complaints Reports as per HPI Musc Reports no additional complaints Skin/Breast Reports system reviewed and no additional complaints, except as documented Neuro Reports no additional complaints Psych Reports no additional complaints Endo Reports no additional complaints Tan/Lymph Reports no additional complaints Aller/Immun Reports no additional complaints Physical Exam Const General: healthy appearing, no acute distress and well developed Orientation/consciousness: patient oriented x3 HEENT Head: Yes normocephalic and Yes atraumatic Eyes Conjunctivae: conjunctivae normal Neck Neck: Yes normal visual inspection Chest Chest palpation & inspection: normal inspection of the chest Resp Effort & Inspection: normal respiratory effort GI Inspection: Yes normal to inspection Neuro General: patient oriented x3 Psych Appearance: grossly normal Affect: normal affect Office Procedures Post Void Residual Post Residual Void Post Void Residual (PVR): 0 [id number] Void Residual by ultrasound Results AMB Urinalysis, Automated UA Leukoctes 0 Vern/uL Last Edit by PEDRO PABLO Rodrigues on 07/11/25 08:21 UA Nitrite Negative Last Edit by PEDRO PABLO Rodrigues on 07/11/25 08:21 UA Urobilinogen 0.2 mg/dL Last Edit by PEDRO PABLO Rodrigues on 07/11/25 08:2 1 UA Protein 0 mg/dL Last Edit by PEDRO PABLO Rodrigues on 07/11/25 08:21 UA pH 6.0 Last Edit by PEDRO PABLO Rodrigues on 07/11/25 08:21 UA Blood 0 Alex/uL Last Edit by PEDRO PABLO Rodrigues on 07/11/25 08:21 UA Specific [place] 1.010 Last Edit by PEDRO PABLO Rodrigues on 07/11/25 08: 21 UA Ketone Negative Last Edit by PEDRO PABLO Rodrigues on 07/11/25 08:21 UA Bilirubin 0 mg/dL Last Edit by Keisha Ahn RMA on 07/11/25 08:21 UA Glucose 0 mg/dL Last Edit by PEDRO PABLO Rodrigues on 07/11/25 08:21 Results Reviewed Results Reviewed: Laboratory Last Values Urine pH (Auto) 6.0 07/11/25 08:05 Specific [place] (Auto) 1.010 07/11/25 08:05 Urine Protein (Auto) 0 mg/dL 07/11/25 08:05 Glucose (UA)(Auto) 0 mg/dL 07/11/25 08:05 Urine Ketones (Auto) Negative 07/11/25 08:05 Urine Blood (Auto) 0 Alex/uL 07/11/25 08:05 Urine Nitrite (Auto) Negative 07/11/25 08:05 Urine Bilirubin (Auto) 0 mg/dL 07/11/25 08:05 Urine Urobilinogen (Auto) 0.2 mg/dL 07/11/25 08:05 Leukocyte Esterase (Auto) 0 Vern/uL 07/11/25 08:05 Date of Service: 06/16/25 Procedure(s): US bladder Accession Number(s): [id number] cc: Smita Shea PA-C~ Reason for Exam: R39.15 - Urgency of urination EXAMINATION: US PELVIS LIMITED (BLADDER) CLINICAL INFORMATION: R39.15. COMPARISON: None available. TECHNIQUE: Real-time imaging of the bladder. FINDINGS: BLADDER: Fluid-filled without intraluminal abnormalities or gross wall thickening. Bilateral ureteral jets are demonstrated. Prevoid bladder volume is 240 mL. Postvoid bladder volume is 73 mL. Prostate gland measures 3 x 3 x 3 cm, volume: 15 disease. US/US bladder IMPRESSION: 73 cc of residual amount of urine in a post void image. Prostate gland volume: 15 cc.. Assessment & Plan Assessment & Plan (1) Difficulty urinating: Code(s): R39.198 - Other difficulties with micturition Category: Medical (2) Urinary urgency: Code(s): R39.15 - Urgency of urination Category: Medical (3) OAB (overactive bladder): Code(s): N32.81 - Overactive bladder Category: Medical Plan Plan 1. Benign Prostatic Hyperplasia (Bph) With Lower Urinary Tract Symptoms 2. Overactive Bladder - in-office cystoscopy to directly visualize the bladder and prostatic urethra. - A kidney ultrasound will also be ordered to rule out any underlying pathology like non-obstructing kidney stones. - The patient was counseled to limit coffee intake, as it can be a bladder irritant and worsen his symptoms. - The patient's primary complaint of urinary urgency has responded very well to oxybutynin. - He finds a trial of tamsulosin was ineffective. - The patient expressed a desire to avoid long-term medication if possible. - The contribution of stress as a potential exacerbating factor for his symptoms was discussed. Orders: Orders AMB Urinalysis Automated Today Z13.9 - Encounter for screening, unspecified AMB Post Void Residual by ultrasound Today N40.1 - Benign prostatic hyperplasia with lower urinary tract symptoms, R39.11 - Hesitancy of micturition US renal BI Today R39.12 - Poor urinary stream, R39.15 - Urgency of urination, R39.198 - Other difficulties with micturition Medications: Refilled oxybutynin chloride ER 5 mg PO DAILY 90 tabs 1RF Patient Instructions: The patient had an opportunity to ask questions regarding treatment plan. The patient expressed understanding and agreement with the above treatment plan. The patient is aware they should contact our office by phone for worsening of their current condition or the appearance of new symptoms. Compliance is encouraged with any medications and followup testing that is ordered. It is a privilege to be allowed the opportunity to participate in the urologic care of your patient. If you have any questions or concerns regarding treatment for the above conditions please do not hesitate to contact me. The office telephone contact is [phone]. This note is constructed in part using voice recognition software. While every effort has been made to ensure accuracy cattle alley worker errors may have been included. Yours sincerely, Vi Bush MD Scribe Plan - Not visible on output: Patient was informed and verbally consented to the use of an ambient scribe for clinic note documentation during this visit. Coding Level of Care Code New Pt Level 4 (88408) Diagnoses Difficulty urinating R39.198 Urinary urgency R39.15 OAB (overactive bladder) N32.81 CPT Codes Post Residual Void - PVR CPT Code: 92980-[id number] Void Residual by ultrasound ([id number]) AUA Symptom Score AUA Incomplete emptying - It does not feel like I empty my bladder all the way.: 4 - More than half the time Frequency - I have to go again less than two hours after I finish urinating.: 3 - About half the time Intermittency - I stop and start again several times when I urinate.: 1 - Less than 1 time in 5 Urgency - It is hard to wait when I have to urinate.: 3 - About half the time Weak stream - I have a weak urinary stream.: 2 - Less than half the time Straining - I have to push or strain to begin urination.: 1 - Less than 1 time in 5 Nocturia - I get up to urinate after I go to bed until the time I get up in the morning.: 1 time AUA Symptom Score: 15 Source: Farhad ROSADO, Maria Dolores LIVE Jr, [place] MP, et al, and the Measurement Committee of the [employer] [place] [employer]. The [employer] [place] [employer] symptom index for benign prostatic hyperplasia. J Urol. 1992; 148: 8199-4223. Copyright 1992 [employer] [place] [employer]
== END 2025-07-11 09:03 | disposition home or self-care (01) ==
LOC: HO.HUSH 07:59
PROVIDERS: Visit Provider Urology
DX: R39.198 Other difficulties with micturition (principal); R39.15 Urgency of urination; N32.81 Overactive bladder; Z13.9 Encounter for screening, unspecified
CPT/HCPCS: 99204

== ENCOUNTER → 2025-07-11 07:58 | Outpatient (BNVA) | payer BC, SELFPAY | PROVIDERS: Visit Provider Urology | DX: R39.198 Other difficulties with micturition (principal); N32.81 Overactive bladder; N40.1 Benign prostatic hyperplasia with lower urinary tract symptoms; R30.0 Dysuria; R39.15 Urgency of urination; Z79.899 Other long term (current) drug therapy | CPT/HCPCS: 51798; 81003 ==